=== PATIENT | male | born 1935 | race Caucasian/White ===

== ENCOUNTER 2017-08-03 08:53 | Outpatient (CLI) | payer MEDICARE ==
--- NOTE | 2017-08-03 09:17 | RAD ---
LEFT HAND THREE VIEWS: HISTORY: Hand pain. FINDINGS: There are moderate degenerative changes at the first carpometacarpal joint. Mild degenerative change s at the first and second MCP joints with minimal spurring and joint narrowing. Mild degenerative ch anges in the DIP joints, most prominent at the second and third DIP joints with hypertrophic spurring . No significant erosive change. There is a metallic soft tissue foreign body within the distal ventral soft tissues of the third fing er, at the level of the distal phalanx. This tiny metallic foreign body measures in the 2 mm range. No fracture or acute abnormality. IMPRESSION: 1. There are degenerative changes in the left hand, as described. 2. Tiny metallic foreign body in the ventral soft tissues of the distal middle finger. POS: [facility]
== END 2017-08-03 08:54 | disposition home or self-care (01) ==
LOC: RAD-FRANK 08:53
PROVIDERS: ATTEND Internal Medicine
DX: M79.5 Residual foreign body in soft tissue (principal); M79.645 Pain in left finger(s)

== ENCOUNTER 2017-12-17 17:40 | Observation (INO) | payer MEDICARE ==
[2017-12-17 18:43] LABS: #Eosinphils 0.5 thou/uL (0.0-0.7); #Lymphocytes 2.8 thou/uL (1.20-3.40); #Monocytes 0.9 thou/uL (0.11-0.59); #Neutrophils 3.8 thou/uL (1.40-6.50); %Basophils 0.4 % (0.0-1.0); %Eosinophils 6.4 % (0.0-10.0); %Lymphocytes 34.3 % (21.0-51.0); %Neutrophils 47.9 % (42.0-75.0); Mean Corpuscular HGB CONC 32.3 g/dL (32.0-36.0); Mean Corpuscular Hemoglobin 29.1 pg (27.0-31.0); Mean Platelet Volume 6.6 fL (7.4-10.4); Platelet Count 235 thou/uL (130-400); RBC Distribution Width 13.2 % (11.5-14.5)
[2017-12-17 19:01] LABS: CKMB 4.4 ng/mL (0-6.6); Troponin I Less than 0.010 ng/mL (< 0.028)
[2017-12-17 19:02] LABS: ALT (SGPT) 18 U/L (8-55); AST (SGOT) 34 U/L (5-34); Albumin 4.3 g/dL (3.4-4.8); Alkaline Phosphatase 73 U/L (40-150); Anion Gap 15 mmol/L (10-20); BUN (Urea Nitrogen) 13 mg/dL (8.4-25.7); Bilirubin, Total 0.6 mg/dL (0.2-1.2); CK (CPK) 100 U/L (30-200); Calc. Creatinine Clearance 0 mL/min (70-130); Calcium 9.8 mg/dL (7.8-10.44); Carbon Dioxide 23 mmol/L (23-31); Chloride 103 mmol/L (98-107); Estimated GFR-MDRD 73; Globulin 3.5 g/dL (2.4-3.5); Glucose 105 mg/dL (83-110); Potassium 4.6 mmol/L (3.5-5.1); Protein, Total 7.8 g/dL (5.8-8.1); Sodium 136 mmol/L (136-145)
--- NOTE | 2017-12-17 19:46 | RAD ---
CHEST ONE VIEW: 12/17/17 INDICATION: History of possible cardiac ischemia. Patient is concerned as the patient felt stiff which is similar to a prior cardiac event. COMPARISON: Prior two view chest radiograph dated 12/24/16. FINDINGS: There is stable elevation of the left hemidiaphragm. Mild cardiomegaly is stable. The lungs are other bertrand clear. Post CABG change is stable. No acute osseous abnormality is noted. IMPRESSION: No acute cardiopulmonary abnormality. POS: [facility]
--- NOTE | 2017-12-17 21:09 | CT ---
CT OF THE BRAIN WITHOUT CONTRAST: 12/17/17 INDICATION: Generalized weakness and difficulty saying words since 1300 hours today. COMPARISON: None. FINDINGS: There is mild generalized cerebral artery. There is mild chronic small vessel white matter ischemic c hange. No acute infarct, hemorrhage or hydrocephalus is present. The skull is intact. Mastoid air williams ls are clear. The visualized paranasal sinuses are clear. IMPRESSION: No acute intracranial abnormality demonstrated. POS: [facility]
[2017-12-17] MEDS ORDERED: Ondansetron ODT 4 MG TAB SL PRN (22:35)
[2017-12-17] MEDS ORDERED: Sodium Chloride 0.9% 1,000 ML IV SCH (22:35)
[2017-12-17] MEDS ORDERED: Acetaminophen 325 MG TAB PO PRN (22:35)
[2017-12-17] MEDS ORDERED: Ondansetron HCl/PF 4 MG/2 ML Vial IVP PRN (22:35)
[2017-12-17 22:49] VITALS: BMI 20.9
[2017-12-18] MEDS ORDERED: Aspirin 325 mg Enteric Coated Tablet PO SCH (08:00)
[2017-12-18] MEDS ORDERED: Prevnar 13-Val Conj/PF 0.5 ML SYRINGE IM ONE (09:00)
--- NOTE | 2017-12-18 12:04 | MRI ---
BRAIN MRI NONCONTRAST: INDICATION: TIA, stroke, generalized weakness. FINDINGS: There is no acute territory infarction, mass effect, or midline shift. Mild prominence of ventricula r system is present due to mild age-related parenchymal volume loss. There is no acute intracranial hemorrhage. Minimal chronic ischemic disease is seen within the cerebral white matter. IMPRESSION: No acute intracranial abnormality. POS: [facility]
--- NOTE | 2017-12-18 18:02 | ULT ---
CAROTID DUPLEX ULTRASOUND: 12/18/17 INDICATION: TIA versus CVA. FINDINGS: There is mild intimal thickening of the common carotid arteries as well as carotid bulbs. Peak systolic velocity in the right CCA was 79.4 cm/s and left CCA was 89.3 cm/s. Peak systolic velocity in the right ICA was 65.8 cm/s and left ICA was 47.9 cm/s. Right ICA to CCA ratio is 0.83 and left is 0.54. Antegrade flow is seen in both vertebral arteries. IMPRESSION: No hemodynamically significant stenosis demonstrated. POS: [facility]
[2017-12-18 20:19] VITALS: BP 149/70; TEMP 98.1
[2017-12-18] MEDS ORDERED: Cyclobenzaprine 10 MG TAB PO SCH (21:00)
--- NOTE | 2017-12-18 22:35 | HP ---
DATE OF ADMISSION: 12/17/2017 CHIEF COMPLAINT: Weakness and speech difficulty. HISTORY OF PRESENT ILLNESS: Mr. Antonio is an 82-year-old male with past medical history of hypertension, hypothyroidism, coronary artery disease, and rheumatoid arthritis came because of sudden onset of weakness in the legs. Basically, it is not exactly weakness. He is unable to ambulate well. He felt like falling down because of gait problem. He also had problem getting words out, so the speech was not clear. These symptoms started on Wednesday that was 2 days ago. Those symptoms lasted until Wednesday until he came to the hospital. Because the symptoms are not getting better, he came to the hospital. He did not have any focal weakness or any headache, dizziness, or vertigo. He did not have any chest pain or shortness of breath, nausea, vomiting. In the ER, the patient was evaluated and found to have any focal neurological deficit. Initial CAT scan of the brain was unremarkable. The patient received aspirin and was admitted for further evaluation to rule out CVA or TIA. The patient states his symptoms have completely resolved. He is able to speak normally and is able to ambulate normally without feeling unsteady. PAST MEDICAL HISTORY: 1. Coronary artery disease. 2. Rheumatoid arthritis. 3. Hypertension. 4. Hypothyroidism. 5. Chronic pain. 6. Hyperlipidemia. PAST SURGICAL HISTORY: Status post stent placement and status post CABG. CURRENT MEDICATIONS: Patient is on metoprolol succinate 50 mg daily, methotrexate once a week , levothyroxine 125 mcg daily, aspirin 325 mg daily. ALLERGIES: PENICILLIN. FAMILY HISTORY: Nothing of interest. SOCIAL HISTORY: He lives with family. No history of smoking or history of alcohol abuse. REVIEW OF SYSTEMS: Cardiovascular: No chest pain or shortness of breath. Constitutional: No fever or cough. Gastrointestinal: No nausea, vomiting, no abdominal pain. Central Nervous System: No headache. No dizziness. PHYSICAL EXAMINATION: GENERAL: The patient is alert, awake and oriented x3. VITAL SIGNS: Temperature 98, pulse 58, respirations 20, blood pressure 170/78. HEENT: Head is normocephalic and atraumatic. Pupils equal and reactive. Nasopharynx is pink and moist. NECK: Supple. No JVD. LUNGS: Bilateral air entry with no rales, no rhonchi. HEART: S1, S2 regular. ABDOMEN: Soft, no distention, no tenderness. Normal bowel sounds. RECTAL: Deferred. NEUROLOGIC: The patient is alert, awake, oriented x3. Motor system: Power 5/ 5 in all extremities. Deep tendon reflexes 2+ bilaterally. Plantars downgoing. Sensory intact. LABORATORY DATA AND IMAGING DATA: CBC shows hemoglobin 16, hematocrit 49, platelets 235. Metabolic panel: Sodium 136, potassium 4.6, chloride 102, CO2 of 23, urea nitrogen 13, creatinine 0.9, glucose 105, CK-MB 4.4, troponin I less than 0.010, BNP 84. CT scan of the brain, no acute intracranial abnormalities demonstrated. Chest x-ray, no acute cardiopulmonary abnormalities seen. EKG shows normal sinus rhythm, no acute ST-T wave changes seen. ASSESSMENT: 1. Unstable gait, balance problems and speech difficulties, rule out cerebrovascular accident, rule out transient ischemic attack. 2. Hypertension. 3. Coronary artery disease, status post stent, status post coronary artery bypass graft. 4. Hypothyroidism. 5. Rheumatoid arthritis. PLAN: 1. Vital signs q.4 hours. 2. Activity as tolerated. 3. Allergies: PENICILLIN. 4. Hep-Lock. 5. Continue home medication. 6. CK-MB and troponin q.8 hours x2. 7. We will obtain MRI of the brain. 8. Carotid Doppler study. 9. Neurology consult, but there is no neurologist available for this weekend. GRAEME
[2017-12-19] MEDS ORDERED: Levothyroxine Sodium 125 MCG TAB PO SCH (06:00)
--- NOTE | 2017-12-19 08:38 | EKG ---
Test Reason : Blood Pressure : / mmHG Vent. Rate : 065 BPM Atrial Rate : 065 BPM P-R Int : 190 ms QRS Dur : 098 ms QT Int : 400 ms P-R-T Axes : 027 -36 052 degrees QTc Int : 416 ms Normal sinus rhythm Possible Left atrial enlargement Left axis deviation RSR' or QR pattern in V1 suggests right ventricular conduction delay Left ventricular hypertrophy Abnormal ECG Confirmed by ROSSY JUAN ([id number]) on 12/19/2017 8:37:52 AM Referred By: Confirmed By:ROSSY JUAN
[2017-12-19] MEDS ORDERED: Aspirin 325 MG TAB PO SCH (09:00)
--- NOTE | 2017-12-20 12:48 | DIS ---
DATE OF ADMISSION: 12/17/2017 DATE OF DISCHARGE: 12/18/2017 ADMITTING DIAGNOSES: 1. Unstable gait balance problems and speech difficulties, rule out cerebrovascular accident, rule o ut transient ischemic attack. 2. Hypertension. 3. Coronary artery disease, status post coronary artery bypass graft. 4. Hypothyroidism. 5. Rheumatoid arthritis. FINAL DIAGNOSES: 1. Unstable gait, balance problems, speech difficulties with possible transient ischemic attack. 2. Hypertension. 3. Coronary artery disease, status post coronary artery bypass graft. 4. Hypothyroidism. 5. Rheumatoid arthritis. BRIEF SUMMARY OF HOSPITAL COURSE: Mr. Antonio is an 82-year-old male admitted because of spe ech difficulties lasted almost for a day as well as the balance problem. The patient was unable to a mbulate, felt like falling down due to balance problems. He did not have any dizziness or vertigo. He denied chest pain, shortness of breath. He did have a definite weakness. The patient was admitte d to rule out CVA or TIA. Initial CAT scan was negative. MRI of the brain was done, which was unrem arkable. The patient's symptoms completely resolved within 24 hours. He was able to ambulate withou t any difficulty. Speech is clear. Neurology consult was requested, but there was no neurologist av ailable for this weekend. The patient is being discharged home. At the time of discharge, he was st able. His vital signs were stable. Lungs clear. Heart sounds regular. Abdomen is soft, nontender. Bowel sounds present. DISCHARGE MEDICATIONS: Aspirin 325 mg daily, methotrexate 12 mg every week, metoprolol 50 daily, lev othyroxine 125 mcg daily. DISCHARGE INSTRUCTIONS: The patient will come for followup next week and he will be referred to a ne urologist for opinion.
[2017-12-25] MEDS ORDERED: Methotrexate Sodium 2.5 MG TAB PO SCH (09:00)
== END 2017-12-18 20:13 | disposition home or self-care (01) ==
LOC: ERS 17:40 → CCU 22:24
PROVIDERS: ADMIT Internal Medicine; ATTEND Internal Medicine
DX: R26.89 Other abnormalities of gait and mobility (principal); R29.91 Unspecified symptoms and signs involving the musculoskeletal system; R47.9 Unspecified speech disturbances; I10 Essential (primary) hypertension; E03.9 Hypothyroidism, unspecified; I25.10 Atherosclerotic heart disease of native coronary artery without angina pectoris; M06.9 Rheumatoid arthritis, unspecified; E78.5 Hyperlipidemia, unspecified; Z79.82 Long term (current) use of aspirin; Z79.899 Other long term (current) drug therapy; Z88.0 Allergy status to penicillin; Z95.1 Presence of aortocoronary bypass graft; Z95.5 Presence of coronary angioplasty implant and graft
CPT/HCPCS: 70450; 70551; 71045; 80053; 82550; 82553; 83880; 84484; 85025; 90662; 90670; 93005; 93880; 96360; 96361; 99285; G0008; G0009; G0378 ×2; 36415; 90471

== ENCOUNTER 2018-11-30 09:24 | Emergency (ER) | payer MEDICARE ==
--- NOTE | 2018-11-30 10:18 | RAD ---
LEFT HIP TWO VIEWS: HISTORY: Fall. COMPARISON: None. FINDINGS: There is a fracture of the greater trochanter, which is displaced anterolaterally. Extensive heterot opic ossification on the lateral thigh. Left lateral thigh soft tissue contusion. Obturator ring is intact. Left hip arthroplasty is in place. IMPRESSION: 1. Anteriorly and laterally displaced left greater trochanteric fracture adjacent to the lateral femo ral proximal stem. 2. Left lateral thigh soft tissue contusion as well as heterotopic ossification. POS: [facility]
[2018-11-30 11:29] LABS: #Basophils 0.1 thou/uL (0.0-0.2); #Eosinphils 0.1 thou/uL (0.0-0.7); #Lymphocytes 1.9 thou/uL (1.20-3.40); #Monocytes 1.8 thou/uL (0.11-0.59); #Neutrophils 12.9 thou/uL (1.40-6.50); %Basophils 0.6 % (0.0-1.0); %Eosinophils 0.5 % (0.0-10.0); %Lymphocytes 11.5 % (21.0-51.0); %Monocytes 10.5 % (0.0-10.0); Hemoglobin 15.5 g/dL (14.0-18.0); Mean Corpuscular HGB CONC 32.4 g/dL (32.0-36.0); Mean Corpuscular Hemoglobin 28.8 pg (27.0-31.0); Mean Corpuscular Volume 88.9 fL (78.0-98.0); Platelet Count 223 thou/uL (130-400); RBC Distribution Width 15.4 % (11.5-14.5); Red Blood Cell (RBC) Count 5.39 mill/uL (4.70-6.10); White Blood Cell (WBC) Count 16.8 thou/uL (4.8-10.8)
[2018-11-30 11:43] LABS: ALT (SGPT) 20 U/L (8-55); AST (SGOT) 26 U/L (5-34); Albumin 4.2 g/dL (3.4-4.8); Alkaline Phosphatase 55 U/L (40-110); Anion Gap 13 mmol/L (10-20); BUN (Urea Nitrogen) 19 mg/dL (8.4-25.7); Bilirubin, Total 0.7 mg/dL (0.2-1.2); Calc. Creatinine Clearance 0 mL/min (70-130); Calcium 9.2 mg/dL (7.8-10.44); Carbon Dioxide 29 mmol/L (23-31); Chloride 102 mmol/L (98-107); Estimated GFR-MDRD 54; Globulin 2.6 g/dL (2.4-3.5); Glucose 142 mg/dL (83-110); Protein, Total 6.8 g/dL (5.8-8.1); Sodium 140 mmol/L (136-145)
[2018-11-30] MEDS ORDERED: HYDROcodone/Acetaminophen 10/325 mg Tablet ONE (12:17)
--- NOTE | 2018-12-03 14:43 | EKG ---
Test Reason : Blood Pressure : / mmHG Vent. Rate : 073 BPM Atrial Rate : 073 BPM P-R Int : 154 ms QRS Dur : 094 ms QT Int : 374 ms P-R-T Axes : 022 -40 132 degrees QTc Int : 412 ms Poor data quality, interpretation may be adversely affected Normal sinus rhythm Left axis deviation Incomplete right bundle branch block Minimal voltage criteria for LVH, may be normal variant Abnormal ECG Confirmed by JOSEPHINE TALLEY DO ([id number]), subeditor NAHID JOHNSON ([id number]) on 12/03/2018 2:42:13 PM Referred By: Confirmed By:JOSEPHINE TALLEY DO
== END 2018-11-30 12:29 | disposition home or self-care (01) ==
LOC: ERS 09:24
DX: S72.112A Displaced fracture of greater trochanter of left femur, initial encounter for closed fracture (principal); M06.9 Rheumatoid arthritis, unspecified; I25.10 Atherosclerotic heart disease of native coronary artery without angina pectoris; E03.9 Hypothyroidism, unspecified; E78.5 Hyperlipidemia, unspecified; I10 Essential (primary) hypertension; Z79.899 Other long term (current) drug therapy; W19.XXXA Unspecified fall, initial encounter
CPT/HCPCS: 36415; 80053; 85025; 93005

== ENCOUNTER 2019-01-17 09:16 | Outpatient (CLI) | payer MEDICARE ==
--- NOTE | 2019-01-17 13:46 | MRI ---
MRI LEFT HIP WITHOUT IV CONTRAST: INDICATIONS: History of left total hip replacement with left hip pain and concern for adverse reaction to cobalt a nd chromium metal on metal hip. COMPARISON: Left hip radiographs dated 11/30/2018 and 11/09/2012. TECHNIQUE: Metal reduction sequences were obtained of the pelvis and left hip without IV contrast. An assortment of T2 weighted, T1 weighted and STIR images were obtained of the left hip. FINDINGS: There is some residual metallic susceptibility artifact from the patient's left acetabular and femora l prosthesis. There is a nondisplaced fracture involving the anterior cortex of the anterior left proximal femoral metaphyseal region, extending down to the anterior femoral shaft, just distal to the end of the femor al stem. This is best seen on images 40 through 13 of series 9. An additional nondisplaced fracture i s seen along the posterior cortex of the proximal left femoral metaphysis, extending into the proxima l femoral shaft, best seen on image 19 of series 6. There is extensive synovitis involving the left hip, distending the joint space and decompressing int o the periarticular soft tissues of the left trochanteric bursa, with a distended pseudocapsule exten ding down the anterolateral aspect of the left thigh. The large periarticular pseudocapsule surroundi ng the left hip measures approximately 25.4 x 8.4 cm in its greatest craniocaudad and AP dimensions r espectively. The collection does extend down to the level of the distal left thigh, subjacent to the iliotibial band and along the vastus lateralis musculature. There is a fluid-fluid layer seen within the large pseudo capsule of the posterolateral left hip and lateral left thigh, possibly related to a small amount of hemorrhage from the patient's periprosthetic fracture. There is extensive synovitis lining the pseudocapsule with low signal intensity signal lining the synovial capsule, likely relate d to metallic debris. There is some synovitis and synovial hypertrophy distending the left iliopsoas bursa, extending along the left iliopsoas tendon and to the level of the left iliacus muscle. The ten don appears intact. The left gluteus minimus is intact. The left gluteus medius tendon is disrupted from this large peria rticular pseudocapsule. There is marked atrophy of the left gluteus minimus and medius musculature. T he pseudocapsule does contact the sciatic nerve, at the level of the proximal left femur without defi nite evidence of impingement. There is scattered diverticula involving the colon. No definite enlarged lymph nodes are evident. IMPRESSION: 1. Findings of a nondisplaced obliquely oriented proximal femoral periprosthetic fracture. 2. 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 There is prominent pseudocapsule distention involving the po sterolateral soft tissues of the left hip that decompresses into the left trochanteric bursa with the fluid distended trochanteric bursa extending inferiorly down the lateral aspect of the left thigh, s ubjacent to the iliotibial band. There is also decompression of the joint effuison into the left ilio psoas bursa with extension of synovial proliferation and bursal fluid along the tendon, up to the lev el of the left iliacus muscle. 3. Findings were called to Dr. Godoy's answering service at 1:10 p.m. on 01/17/2019. CODE CR POS: [facility]
== END 2019-01-17 09:17 | disposition home or self-care (01) ==
LOC: MRI 09:16
PROVIDERS: ATTEND Orthopaedic Surgery
DX: Z47.1 Aftercare following joint replacement surgery (principal); Z96.642 Presence of left artificial hip joint

== ENCOUNTER 2019-02-15 13:30 | Inpatient (IN) | payer MEDICARE ==
[2019-02-15 13:30] VITALS: BMI 27.2
[2019-02-28] MEDS ORDERED: Midazolam HCl 2 mg/2 ml Vial ONE (07:28)
[2019-02-28] MEDS ORDERED: Fentanyl 100 MCG/2 ML VIAL ONE ×2 (07:28→09:09)
[2019-02-28] MEDS ORDERED: Tranexamic Acid 1,000 MG/10 ML VIAL ONE (08:30)
[2019-02-28] MEDS ORDERED: Levofloxacin 500 mg/D5W 100 ml Premix Bag ONE (08:30)
[2019-02-28] MEDS ORDERED: Sodium Chloride 0.9% 0 ML ONE (08:31)
[2019-02-28] MEDS ORDERED: Vancomycin 1.5 GRAM/300 ML BAG 1.5 GM/300 ML BAG ONE (08:34)
[2019-02-28] MEDS ORDERED: Sodium Chloride 0.9% 100 ML ONE (08:34)
[2019-02-28] MEDS ORDERED: Promethazine HCl 25 MG SUPP PR PRN (09:00)
[2019-02-28] MEDS ORDERED: diphenhydrAMINE 25 MG CAP PO PRN ×2 (09:00→12:16)
[2019-02-28] MEDS ORDERED: Bupivacaine 0.25% 10 ML VIAL EPIDURAL PRN (09:00)
[2019-02-28] MEDS ORDERED: Naloxone HCl 0.4 mg/ml Vial IV PRN (09:00)
[2019-02-28] MEDS ORDERED: diphenhydrAMINE 50 MG/ML VIAL IM PRN (09:00)
[2019-02-28] MEDS ORDERED: Hydrocerin (Eucerin) Cream 120 gm Jar TOP PRN (09:00)
[2019-02-28] MEDS ORDERED: Zolpidem Tartrate 5 MG TAB PO PRN ×2 (09:00→12:16)
[2019-02-28] MEDS ORDERED: diphenhydrAMINE 50 MG/ML VIAL IVP PRN (09:00)
[2019-02-28] MEDS ORDERED: Naloxone HCl 0.4 mg/ml Vial IVP PRN (09:00)
[2019-02-28] MEDS ORDERED: Promethazine HCl 25 MG/ML VIAL IM PRN ×3 (09:00→12:16)
[2019-02-28] MEDS ORDERED: Ropivacaine 0.2% HCl/PF 20 ML ONE (09:13)
[2019-02-28] MEDS ORDERED: Gentamicin Sulfate 120 MG in Premix Bag 1 BAG IVPB SCH (09:30)
[2019-02-28] MEDS ORDERED: PROPOFOL 200 MG/20 ML VIAL ONE (10:51)
[2019-02-28] MEDS ORDERED: ePHEDrine/0.9% NaCl/PF SYRINGE 50 mg/10 ml ONE (10:51)
[2019-02-28] MEDS ORDERED: Lidocaine 1.5% w/Epi 1:200K 30 ML VIAL (Epid Use) ONE (10:51)
[2019-02-28] MEDS ORDERED: Rocuronium Bromide 10 MG/ML (10ML VIAL) ONE (10:51)
[2019-02-28] MEDS ORDERED: Lidocaine 1% PF 5 ML VIAL ONE (10:51)
[2019-02-28] MEDS ORDERED: Glycopyrrolate 0.2 MG/ML 5 ML SYRINGE ONE (10:51)
[2019-02-28] MEDS ORDERED: PHENYLEPHRINE-NS 100 MCG/ML 10 ML SYRINGE ONE (10:51)
[2019-02-28] MEDS ORDERED: Ondansetron HCl/PF 4 MG/2 ML Vial IVP PRN (12:14)
[2019-02-28] MEDS ORDERED: Promethazine HCl 25 MG/ML VIAL SLOW IVP PRN (12:14)
[2019-02-28] MEDS ORDERED: Morphine 4 MG/ML VIAL SLOW IVP PRN (12:16)
[2019-02-28] MEDS ORDERED: Ondansetron PF 4 MG/2 ML Vial IVP PRN (12:16)
[2019-02-28] MEDS ORDERED: Ketorolac Tromethamine 30 MG/ML VIAL IVP PRN (12:16)
[2019-02-28] MEDS ORDERED: HYDROcodone/Acetaminophen 10/325 mg Tablet PO PRN ×2 (12:16)
[2019-02-28] MEDS ORDERED: Acetaminophen 325 MG TAB PO PRN (12:16)
[2019-02-28] MEDS ORDERED: Fentanyl 100 MCG/2 ML VIAL SLOW IVP PRN (12:16)
[2019-02-28] MEDS ORDERED: traMADol HCl 50 MG TAB PO PRN (12:16)
[2019-02-28] MEDS ORDERED: RISEDRONATE SODIUM 150 MG PO SCH (12:30)
--- NOTE | 2019-02-28 12:37 | RAD ---
EXAM: 2 views of the left hip HISTORY: Left hip revision arthroplasty COMPARISON: 11/30/2018 FINDINGS: 2 views of the left hip shows the patient is status post revision of the left hip prosthesi s. Cerclage wires surround the proximal femur where a fracture is seen. Air in the soft tissues is from recent surgery. IMPRESSION: Status post left hip arthroplasty revision.
[2019-02-28] MEDS ORDERED: Gentamicin 80 MG/2 ML VIAL IM SCH (14:00)
--- NOTE | 2019-02-28 15:26 | OP ---
DATE OF PROCEDURE: 02/28/2019 TITLE OF PROCEDURE: Revision total hip arthroplasty. IN [employer] SERVICE TECHNICIAN: Ryan Armendariz MD ESTIMATED BLOOD LOSS: 400. SPECIMEN: Very large amount of adverse tissue reaction was sent for culture and for microscopic specimen. IMPLANTS USED: [employer]eger [employer] Modular 18 mm stem with a 19-mm body, a +4 ceramic head, and a 46 mm head, used an MDM cup size 60 outside diameter. DESCRIPTION OF PROCEDURE: The patient was taken to the operating room, where general anesthesia was induced. He received vancomycin and gentamicin preoperatively. He was placed on right lateral decubitus position. I opened up part of his old incision laterally, extended this extensively proximally and distally. Dissection carried down the IT band. I exposed the IT band then opened it with a knife and there was just a rupture and a fluid and foreign body material from the wound itself. I then extended the IT band proximally and distally and extirpated a large amount of adverse tissue reaction, metallosis, and scar. There was essentially no abductors connected anymore to the greater trochanter. The hip was dislocated. The head was removed. I used the appropriate implants to remove the trunnion. I then tried to remove the stem without making an osteotomy; however, osteotomy was required. Osteotomy was performed to the hip. Stem was removed without difficulty. Then, we repaired the osteotomy with cables. The acetabulum was exposed circumferentially and the socket was removed using Innomed cup extractor device. I was able to preserve a great deal of bone on the pelvis. The pelvis was reamed to 58 mm. I impacted a 60 mm multi-hole revision cup with excellent press fit. No screws were required. I placed the MDM liner. The femur was then reamed to 18 mm distally. I impacted 18 mm stem, reamed laterally up to a tight 19 mm using 19 mm body, performed trials. Appropriate implants were selected. I assembled the implant correctly, used a torque wrench to reduce the tight in the bolt. The hip was reduced. There was no abductors close. I did repair the vastus lateralis with #1 Vicryl, IT band was repaired with #2 Vicryl and #2 Quill, subcu closed with 0 Quill. Skin was closed with Prolene. Sterile dressing applied. Job ID: [id number]
[2019-02-28] MEDS: Sodium Chloride 0.9% 1,000 ML IV SCH (18:22)
[2019-02-28] MEDS: Gentamicin Sulfate 80 MG in Premix Bag 1 BAG IVPB SCH (18:24)
[2019-02-28] MEDS: Senokot S 8.6-50 MG TAB PO SCH (20:19)
[2019-02-28] MEDS: Aspirin 81 mg Enteric Coated Tablet PO SCH (20:20)
[2019-02-28] MEDS: Cepastat Lozenges 1 LOZ PO PRN ×2 (20:20→22:29)
[2019-02-28] MEDS: Ferrous Gluconate 324 MG TAB PO SCH (20:20)
[2019-02-28] MEDS ORDERED: Vancomycin HCl 1 GM in Premix Bag 1 BAG IVPB SCH (20:30)
[2019-02-28] MEDS ORDERED: Metoprolol Tartrate 50 MG TAB PO SCH (21:00)
[2019-03-01] MEDS: Cepastat Lozenges 1 LOZ PO PRN (00:39)
--- NOTE | 2019-03-01 00:47 | CON ---
DATE OF CONSULTATION: 02/28/2019 REASON FOR CONSULT: To manage medical problems. REQUESTING PHYSICIAN: Artem Godoy MD HISTORY OF PRESENT ILLNESS: Mr. Antonio is an 83-year-old male, with past medical history of hypertension, rheumatoid arthritis, hypothyroidism, chronic left hip pain, was admitted for revision left hip total arthroplasty. The patient underwent surgery today and we have been consulted to manage medical problems. The patient does have history of hypertension, rheumatoid arthritis, on medications and currently does not have any shortness of breath or chest pain. No fever. No nausea, vomiting, was able to ambulate with a walker today. The patient is on pain medication. He does not have any headache or dizziness. PAST MEDICAL HISTORY: 1. Coronary artery disease. 2. Rheumatoid arthritis. 3. Hypertension. 4. Hypothyroidism. 5. Chronic pain. 6. Hyperlipidemia. PAST SURGICAL HISTORY: 1. Status post stent placements. 2. Status post CABG. 3. Status post hip replacement. CURRENT MEDICATIONS: The patient is on 1. Tylenol p.r.n. at home. 2. Aspirin 81 mg daily. 3. Multivitamin daily. 4. Vitamin D3 2000 units daily. 5. Folic acid 1 mg daily. 6. Prednisone 5 mg daily. 7. Metoprolol 50 mg daily.. 8. Levothyroxine 100 mcg daily. 9. Orencia q.30 days. ALLERGIES: INCLUDE MUCINEX, LEVAQUIN, METHOTREXATE, PENICILLINS, SIMVASTATIN. REVIEW OF SYSTEMS: CARDIOVASCULAR: No chest pain. No shortness of breath. RESPIRATORY: No fever or cough. GASTROINTESTINAL: No nausea, vomiting. No abdominal pain. CENTRAL NERVOUS SYSTEM: No headache. No dizziness. PHYSICAL EXAMINATION: GENERAL: The patient is alert, awake, oriented x3. VITAL SIGNS: Temperature 98, pulse 90, respiratory rate 20, blood pressure 120/ 70. HEENT: Head is normocephalic, atraumatic. Pupils are equal and reactive. Nasopharynx is pink and moist. NECK: Supple. No JVD. LUNGS: Bilateral air entry present. No rales, no rhonchi. HEART: S1 and S2, regular. ABDOMEN: Soft. No distention. No tenderness. Normal bowel sounds. RECTAL: Deferred. CENTRAL NERVOUS SYSTEM: No focal deficits. LABORATORY DATA: CBC, basic metabolic panel pending. ASSESSMENT: 1. Left hip pain status post revision total hip arthroplasty. 2. Hypertension. 3. Coronary artery disease. 4. Rheumatoid arthritis. 5. Hyperlipidemia. 6. Hypothyroidism. PLAN: 1. Hold metoprolol if the systolic blood pressure less than 110. 2. We will hold other home medications as well for the time being until he is off pain pump. Thank you very much for the consult, I will follow. Job ID: [id number] MTDD
[2019-03-01] MEDS: Gentamicin Sulfate 80 MG in Premix Bag 1 BAG IVPB SCH (01:16)
[2019-03-01] MEDS: Fentanyl 5 mcg/Bup 0.075% Cadd 100 ML EPIDURAL SCH ×2 (04:27→20:30)
[2019-03-01 05:49] LABS: Hemoglobin 12.7 g/dL (14.0-18.0); Mean Corpuscular HGB CONC 32.4 g/dL (32.0-36.0); Mean Corpuscular Hemoglobin 30.4 pg (27.0-31.0); Mean Corpuscular Volume 93.8 fL (78.0-98.0); Platelet Count 203 thou/uL (130-400); RBC Distribution Width 13.2 % (11.5-14.5); Red Blood Cell (RBC) Count 4.17 mill/uL (4.70-6.10); White Blood Cell (WBC) Count 9.8 thou/uL (4.8-10.8)
[2019-03-01] MEDS: Levothyroxine Sodium 100 MCG TAB PO SCH (06:40)
[2019-03-01] MEDS: Sodium Chloride 0.9% 1,000 ML IV SCH ×3 (07:23→12:49)
[2019-03-01] MEDS ORDERED: MILK THISTLE 1000 MG PO SCH (09:00)
[2019-03-01] MEDS ORDERED: Multivit, Therapeutic 1 TAB PO SCH (09:00)
[2019-03-01] MEDS: Vit A,C & E/Lutein/Minerals Tablet PO SCH (09:04)
[2019-03-01] MEDS: Aspirin 81 mg Enteric Coated Tablet PO SCH ×2 (09:04→20:32)
[2019-03-01] MEDS: Multivitamin W/ Minerals 1 TAB PO SCH (09:04)
[2019-03-01] MEDS: Ferrous Gluconate 324 MG TAB PO SCH ×2 (09:04→20:31)
[2019-03-01] MEDS: predniSONE 5 MG TAB PO SCH (09:04)
[2019-03-01] MEDS: Senokot S 8.6-50 MG TAB PO SCH ×2 (09:04→20:32)
[2019-03-01] MEDS: Fish Oil 1,000 MG CAP PO SCH (09:08)
[2019-03-01] MEDS: Stress 600 With Zinc 1 TAB PO SCH (09:09)
[2019-03-01] MEDS: Ondansetron PF 4 MG/2 ML Vial IVP PRN (09:20)
[2019-03-01] MEDS ORDERED: Metoprolol Tartrate 25 MG TAB PO SCH (16:45)
[2019-03-01] MEDS ORDERED: Metoprolol Tartrate 50 MG TAB PO SCH (17:15)
[2019-03-01] MEDS ORDERED: Enoxaparin Sodium 40 MG/0.4 ML SYRINGE SC SCH (21:00)
[2019-03-02] MEDS: Levothyroxine Sodium 100 MCG TAB PO SCH (06:01)
[2019-03-02] MEDS: Sodium Chloride 0.9% 1,000 ML IV SCH ×2 (06:04→17:05)
[2019-03-02 06:15] LABS: Hemoglobin 10.6 g/dL (14.0-18.0); Mean Corpuscular HGB CONC 31.6 g/dL (32.0-36.0); Mean Corpuscular Hemoglobin 29.1 pg (27.0-31.0); Mean Corpuscular Volume 92.2 fL (78.0-98.0); Mean Platelet Volume 7.1 fL (7.4-10.4); Platelet Count 178 thou/uL (130-400); RBC Distribution Width 13.1 % (11.5-14.5); Red Blood Cell (RBC) Count 3.64 mill/uL (4.70-6.10)
[2019-03-02] MEDS: Ferrous Gluconate 324 MG TAB PO SCH ×2 (08:03→20:32)
[2019-03-02] MEDS: Multivitamin W/ Minerals 1 TAB PO SCH (08:03)
[2019-03-02] MEDS: Fish Oil 1,000 MG CAP PO SCH (08:03)
[2019-03-02] MEDS: Senokot S 8.6-50 MG TAB PO SCH ×2 (08:03→20:32)
[2019-03-02] MEDS: Aspirin 81 mg Enteric Coated Tablet PO SCH ×2 (08:03→20:33)
[2019-03-02] MEDS: Vit A,C & E/Lutein/Minerals Tablet PO SCH (08:03)
[2019-03-02] MEDS: predniSONE 5 MG TAB PO SCH (08:03)
[2019-03-02] MEDS: Stress 600 With Zinc 1 TAB PO SCH (08:04)
--- NOTE | 2019-03-02 08:48 | PRG ---
DATE OF SERVICE: 03/02/2019 SUBJECTIVE: Mehul is an 83-year-old male, postop day 2 from revision left total hip arthroplasty secondary to aseptic failure. Tissue cultures, no growth at 24 hours and no organisms seen. The patient ambulated 200 feet yesterday. He is quite happy with his postoperative results and his pain is significantly better. OBJECTIVE: VITAL SIGNS: Temperature 98.6, pulse 100, respiratory rate 16, O2 saturation is 93% on room air, blood pressure is 123/70. GENERAL: He is alert and oriented to person, place, time, situation, responsive and appropriate with examiner, in good spirits. EXTREMITIES: Incision is clean. No strike through. No malrotation or shortening. LABORATORY DATA: His hemoglobin and hematocrit 10.6 and 33.6. 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 PLAN: Continue current care. We will discontinue epidural and Tellez today and probable discharge home tomorrow. Job ID: [id number]
[2019-03-02] MEDS ORDERED: Morphine 4 MG/ML VIAL SLOW IVP PRN (09:49)
[2019-03-02] MEDS ORDERED: HYDROcodone/Acetaminophen 10/325 mg Tablet PO PRN ×2 (09:49)
[2019-03-02] MEDS ORDERED: Zolpidem Tartrate 5 MG TAB PO PRN (09:50)
[2019-03-02] MEDS ORDERED: Iopamidol-370 76% 500 ML 1 ML ONE (10:40)
[2019-03-02 10:53] LABS: ALT (SGPT) 14 U/L (8-55); AST (SGOT) 34 U/L (5-34); Albumin 3.1 g/dL (3.4-4.8); Alkaline Phosphatase 41 U/L (40-110); Anion Gap 12 mmol/L (10-20); BUN (Urea Nitrogen) 14 mg/dL (8.4-25.7); Calc. Creatinine Clearance 72 mL/min (70-130); Calcium 8.1 mg/dL (7.8-10.44); Carbon Dioxide 22 mmol/L (23-31); Chloride 103 mmol/L (98-107); Estimated GFR-MDRD 74; Globulin 2.3 g/dL (2.4-3.5); Glucose 135 mg/dL (83-110); Potassium 4.2 mmol/L (3.5-5.1); Protein, Total 5.4 g/dL (5.8-8.1); Sodium 133 mmol/L (136-145)
--- NOTE | 2019-03-02 11:46 | CT ---
CT PULMONARY ANGIOGRAM WITH IV CONTRAST AND 3D POST PROCESSING: HISTORY: Recent hip replacement. Tachycardia. Erratic biophysical profile. FINDINGS: There is good contrast opacification of the pulmonary arterial vasculature without filling defects to suggest pulmonary embolism. The thoracic aorta is well opacified without aneurysm or dissection. No pleural or pericardial effusions are seen. There is elevation of the left hemidiaphragm. There are at electatic changes in the lung bases. There are degenerative changes in the spine. There are old compr ession fractures of the mid thoracic vertebral bodies. IMPRESSION: No CT evidence of pulmonary embolism. POS: [facility]
[2019-03-02] MEDS: Ondansetron PF 4 MG/2 ML Vial IVP PRN (12:54)
--- NOTE | 2019-03-02 16:53 | EKG ---
Test Reason : Blood Pressure : / mmHG Vent. Rate : 104 BPM Atrial Rate : 104 BPM P-R Int : 192 ms QRS Dur : 102 ms QT Int : 332 ms P-R-T Axes : 058 -49 059 degrees QTc Int : 436 ms Sinus tachycardia Left anterior fascicular block Nonspecific ST abnormality Abnormal ECG When compared with ECG of 15-FEB-2019 14:16, (Unconfirmed) Borderline criteria for Lateral infarct are no longer Present ST now depressed in Anterior leads Confirmed by DR. Luis KEENAN ([id number]) on 03/02/2019 4:53:06 PM Referred By: BLAS Confirmed By:DR. Luis KEENAN
[2019-03-02] MEDS: traMADol HCl 50 MG TAB PO PRN ×2 (16:54→23:13)
[2019-03-02] MEDS: Metoprolol Tartrate 50 MG TAB PO SCH (20:32)
[2019-03-02] MEDS ORDERED: Metoprolol Tartrate 25 MG TAB PO SCH (21:00)
[2019-03-03] MEDS: Sodium Chloride 0.9% 1,000 ML IV SCH ×4 (01:07→20:43)
[2019-03-03 05:23] LABS: Hemoglobin 10.2 g/dL (14.0-18.0); Mean Corpuscular Hemoglobin 30.1 pg (27.0-31.0); Mean Corpuscular Volume 91.1 fL (78.0-98.0); Mean Platelet Volume 7.2 fL (7.4-10.4); Platelet Count 188 thou/uL (130-400); RBC Distribution Width 12.8 % (11.5-14.5); Red Blood Cell (RBC) Count 3.39 mill/uL (4.70-6.10); White Blood Cell (WBC) Count 12.8 thou/uL (4.8-10.8)
[2019-03-03] MEDS: Levothyroxine Sodium 100 MCG TAB PO SCH (05:31)
[2019-03-03] MEDS: traMADol HCl 50 MG TAB PO PRN ×3 (05:31→18:19)
--- NOTE | 2019-03-03 08:14 | PRG ---
DATE OF SERVICE: 03/03/2019 SUBJECTIVE: Mehul is an 83-year-old male, who is now postoperative day #3 from a revision bicompartmental left hip arthroplasty. He is doing relatively well in terms of getting in and out of bed, but he is not quite independent with going back and forth to the toilet on his own, but he is able to ambulate 200 feet with standby assist. He has not had a bowel movement yet. He is concerned over this and he only urinated once yesterday. His output has been scant. He otherwise feels relatively well. OBJECTIVE: VITAL SIGNS: Temperature 98.2, pulse 88, respiratory rate 20 and unlabored, O2 saturation is 93% on room air, and blood pressure 142/72. GENERAL: He is alert and oriented to person, place, time, and situation. Responsive and appropriate with examiner. His incision is clean. There is no significant strike through. There is no malrotation or shortening of the left lower extremity. LABORATORY DATA: Hemoglobin and hematocrit 10.2 and 30.9. His white count is 12.8, which is slightly up from yesterday of 12. Cultures at 48 hours still demonstrated no growth. No tissues or organisms seen. IMPRESSION: An 83-year-old male, postop day #3 from a bicompartmental left hip revision arthroplasty. PLAN: Continue current care. I will encourage oral intake, also give supplement for some MiraLAX for his bowels, but I think the patient should convalesce over the weekend since he is a little slow reaching milestones of independence. Also may introduce concept of a short rehab stay, but I will leave that up to him. Follow up tomorrow. Job ID: [id number]
[2019-03-03] MEDS: Multivitamin W/ Minerals 1 TAB PO SCH (08:16)
[2019-03-03] MEDS: Senokot S 8.6-50 MG TAB PO SCH ×2 (08:16→20:43)
[2019-03-03] MEDS: Ferrous Gluconate 324 MG TAB PO SCH ×2 (08:16→20:43)
[2019-03-03] MEDS: Fish Oil 1,000 MG CAP PO SCH (08:16)
[2019-03-03] MEDS: predniSONE 5 MG TAB PO SCH (08:16)
[2019-03-03] MEDS: Polyethylene Glycol 3350 17 GM Packet PO PRN (08:16)
[2019-03-03] MEDS: Aspirin 81 mg Enteric Coated Tablet PO SCH ×2 (08:16→20:43)
[2019-03-03] MEDS: Stress 600 With Zinc 1 TAB PO SCH (08:17)
[2019-03-03] MEDS: Vit A,C & E/Lutein/Minerals Tablet PO SCH (08:17)
[2019-03-03] MEDS: Metoprolol Tartrate 50 MG TAB PO SCH (20:43)
[2019-03-04] MEDS: Levothyroxine Sodium 100 MCG TAB PO SCH (05:36)
[2019-03-04] MEDS: Sodium Chloride 0.9% 1,000 ML IV SCH ×2 (05:36→15:43)
[2019-03-04 06:40] LABS: Hemoglobin 9.6 g/dL (14.0-18.0); Mean Corpuscular HGB CONC 33.1 g/dL (32.0-36.0); Mean Corpuscular Hemoglobin 30.3 pg (27.0-31.0); Mean Corpuscular Volume 91.4 fL (78.0-98.0); Mean Platelet Volume 7.6 fL (7.4-10.4); Platelet Count 202 thou/uL (130-400); RBC Distribution Width 12.7 % (11.5-14.5); Red Blood Cell (RBC) Count 3.17 mill/uL (4.70-6.10); White Blood Cell (WBC) Count 10.3 thou/uL (4.8-10.8)
[2019-03-04] MEDS: Vit A,C & E/Lutein/Minerals Tablet PO SCH (09:42)
[2019-03-04] MEDS: Stress 600 With Zinc 1 TAB PO SCH (09:42)
[2019-03-04] MEDS: Senokot S 8.6-50 MG TAB PO SCH ×2 (09:42→20:52)
[2019-03-04] MEDS: Aspirin 81 mg Enteric Coated Tablet PO SCH ×2 (09:43→20:52)
[2019-03-04] MEDS: Multivitamin W/ Minerals 1 TAB PO SCH (09:43)
[2019-03-04] MEDS: Ferrous Gluconate 324 MG TAB PO SCH ×2 (09:43→20:52)
[2019-03-04] MEDS: predniSONE 5 MG TAB PO SCH (09:43)
[2019-03-04] MEDS: traMADol HCl 50 MG TAB PO PRN ×2 (09:43→19:09)
[2019-03-04] MEDS: Fish Oil 1,000 MG CAP PO SCH (09:43)
[2019-03-04] MEDS: Metoprolol Tartrate 50 MG TAB PO SCH (20:52)
[2019-03-05] MEDS: Sodium Chloride 0.9% 1,000 ML IV SCH ×2 (02:59→13:00)
[2019-03-05 05:34] LABS: Hemoglobin 10.7 g/dL (14.0-18.0); Mean Corpuscular HGB CONC 32.6 g/dL (32.0-36.0); Mean Platelet Volume 7.9 fL (7.4-10.4); Platelet Count 264 thou/uL (130-400); RBC Distribution Width 12.8 % (11.5-14.5); Red Blood Cell (RBC) Count 3.55 mill/uL (4.70-6.10); White Blood Cell (WBC) Count 10.7 thou/uL (4.8-10.8)
[2019-03-05] MEDS: traMADol HCl 50 MG TAB PO PRN ×3 (05:34→20:02)
[2019-03-05] MEDS: Levothyroxine Sodium 100 MCG TAB PO SCH (05:34)
[2019-03-05] MEDS: predniSONE 5 MG TAB PO SCH (08:39)
[2019-03-05] MEDS: Fish Oil 1,000 MG CAP PO SCH (08:39)
[2019-03-05] MEDS: Aspirin 81 mg Enteric Coated Tablet PO SCH ×2 (08:39→20:02)
[2019-03-05] MEDS: Polyethylene Glycol 3350 17 GM Packet PO PRN (08:39)
[2019-03-05] MEDS: Vit A,C & E/Lutein/Minerals Tablet PO SCH (08:39)
[2019-03-05] MEDS: Ferrous Gluconate 324 MG TAB PO SCH ×2 (08:39→20:02)
[2019-03-05] MEDS: Multivitamin W/ Minerals 1 TAB PO SCH (08:39)
[2019-03-05] MEDS: Senokot S 8.6-50 MG TAB PO SCH ×2 (08:39→20:02)
--- NOTE | 2019-03-05 09:47 | RAD ---
XR Hip Lt 2-3 View HISTORY: Left hip pain COMPARISON: 02/28/2019 FINDINGS: Left hip prosthesis remains in good position and alignment. Cerclage wires surrounding the proximal f emur where a fracture is again seen. Soft tissue air is seen but has improved since the last exam.
[2019-03-05] MEDS: Stress 600 With Zinc 1 TAB PO SCH (10:12)
[2019-03-05] MEDS: Metoprolol Tartrate 50 MG TAB PO SCH (20:02)
[2019-03-06] MEDS: Sodium Chloride 0.9% 1,000 ML IV SCH ×3 (02:29→15:58)
[2019-03-06 05:17] LABS: Hemoglobin 10.7 g/dL (14.0-18.0); Mean Corpuscular HGB CONC 32.1 g/dL (32.0-36.0); Mean Corpuscular Hemoglobin 29.4 pg (27.0-31.0); Mean Corpuscular Volume 91.4 fL (78.0-98.0); Mean Platelet Volume 7.6 fL (7.4-10.4); Platelet Count 333 thou/uL (130-400); RBC Distribution Width 12.8 % (11.5-14.5); Red Blood Cell (RBC) Count 3.63 mill/uL (4.70-6.10); White Blood Cell (WBC) Count 9.9 thou/uL (4.8-10.8)
[2019-03-06] MEDS: Levothyroxine Sodium 100 MCG TAB PO SCH (05:27)
[2019-03-06] MEDS: traMADol HCl 50 MG TAB PO PRN ×3 (05:28→18:29)
[2019-03-06] MEDS ORDERED: Sulfameth/Trimethoprim DS 800-160mg TAB PO SCH (09:00)
[2019-03-06] MEDS: Fish Oil 1,000 MG CAP PO SCH (09:41)
[2019-03-06] MEDS: Aspirin 81 mg Enteric Coated Tablet PO SCH ×2 (09:41→20:52)
[2019-03-06] MEDS: Stress 600 With Zinc 1 TAB PO SCH (09:41)
[2019-03-06] MEDS: Ferrous Gluconate 324 MG TAB PO SCH ×2 (09:41→20:52)
[2019-03-06] MEDS: Senokot S 8.6-50 MG TAB PO SCH ×2 (09:41→20:52)
[2019-03-06] MEDS: Vit A,C & E/Lutein/Minerals Tablet PO SCH (09:41)
[2019-03-06] MEDS: predniSONE 5 MG TAB PO SCH (09:42)
[2019-03-06] MEDS: Multivitamin W/ Minerals 1 TAB PO SCH (09:42)
--- NOTE | 2019-03-06 15:37 | CON ---
DATE OF CONSULTATION: 03/06/2019 REASON FOR CONSULTATION: Left hip revision with positive cultures. 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 Dr. Godoy identified the problem and he carried out removal of the hip and revision. The pathology showed soft tissues, which appeared necrotic, mostly with chronic inflammation and necrosis. The operative report was reviewed and there was a large amount of what Dr. Godoy describes as adverse tissue reaction metallosis and scar without any abductors connected anymore to the greater trochanter. The hip head was removed, the stem was removed, and the acetabulum was removed as well. The patient had a new implant placed with a ceramic head. Cultures from the tissue demonstrated Serratia marcescens on nutrient broth only. Currently, Mr. Antonio is sitting, eating lunch. Denies headaches. No visual symptoms. Moderate sore throat from the intubation. No dyspnea or chest pain. No abdominal pain. A little bit of constipation, but no genitourinary symptoms. Usual joint symptoms related to his rheumatoid arthritis. No neurological symptoms. MEDICAL HISTORY: 1. Rheumatoid arthritis. 2. Coronary artery disease. 3. Prior myocardial infarction. 4. Hypothyroidism. 5. Hyperlipidemia. 6. Hypertension. 7. Bypass graft surgery. 8. Cardiac stents x3. 9. Numerous left hip replacements. ALLERGIES: AMOXICILLIN, METHOTREXATE, AND LEVOFLOXACIN LISTED, AND DEXTROMETHORPHAN. SOCIAL HISTORY: Never smoker. Retired. CURRENT MEDICATIONS: 1. Tylenol. 2. Saragosa. 3. Ecotrin. 4. Benadryl. 5. Sublimaze. 6. Fergon. 7. Fish oil. 8. Synthroid. 9. Lopressor. 10. Narcan. 11. Zofran. 12. Protonix. 13. Prednisone. 14. Bactrim. PHYSICAL EXAMINATION: VITAL SIGNS: With normal temperature since admission, BP 120/50, pulse 78, respirations 16, and O2 saturation 97. SKIN: The surgical site, peripheral IV access. No lymphadenopathy. HEENT: Ocular movements conjugate. Oral cavity normal. NECK: Supple. No jugular vein distention. LUNGS: Symmetric. Clear breath sounds. HEART: S1 and S2. Regular rate. No S3 or S4. ABDOMEN: Soft, not distended or tender. No ascites. No bladder distention. MUSCULOSKELETAL: No joint inflammatory activity outside the involved area. No edema. Pulses 1+ in dorsalis pedis. NEUROLOGIC: Nonfocal. Cognitive function appears to be normal. LABORATORY STUDIES: White cell count was 9.8, went up to 12.8, now is 9.9; hemoglobin 10.7; and platelets 333. Sodium 133 and creatinine 0.97. Liver profile normal. Albumin 3.1. Microbiology with Serratia marcescens, this is from nutritional broth only, this is broadly susceptible organism except for cefoxitin. Chest CT was done on arrival due to concern of PE, that was ruled out. There is a hip x-ray from yesterday with good position and alignment of the left hip prosthesis. ASSESSMENT: 1. Rheumatoid arthritis. 2. 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 3. Serratia marcescens, retrieved from the tissue sample from the hip in small amounts. DISCUSSION: This finding will have to be treated despite the low numbers of organisms. Trimethoprim and sulfamethoxazole penetration in joints is good for trimethoprim, but poor for sulfamethoxazole and I would not trust it for treatment of this type of situation. Either we can use ciprofloxacin after challenge if he tolerates it or we will have to place a PICC line and treat with Rocephin with the usual duration and followup. Job ID: [id number]
[2019-03-06] MEDS: Metoprolol Tartrate 50 MG TAB PO SCH (20:52)
[2019-03-06] MEDS: Cipro 250 MG TAB PO SCH (20:52)
[2019-03-07] MEDS: Sodium Chloride 0.9% 1,000 ML IV SCH ×3 (04:23→20:23)
[2019-03-07] MEDS: Cipro 250 MG TAB PO SCH ×2 (06:35→20:21)
[2019-03-07] MEDS: Levothyroxine Sodium 100 MCG TAB PO SCH (06:36)
[2019-03-07] MEDS: traMADol HCl 50 MG TAB PO PRN ×2 (06:38→13:14)
[2019-03-07] MEDS: Polyethylene Glycol 3350 17 GM Packet PO PRN (08:45)
[2019-03-07] MEDS: predniSONE 5 MG TAB PO SCH (08:45)
[2019-03-07] MEDS: Vit A,C & E/Lutein/Minerals Tablet PO SCH (08:45)
[2019-03-07] MEDS: Fish Oil 1,000 MG CAP PO SCH (08:45)
[2019-03-07] MEDS: Senokot S 8.6-50 MG TAB PO SCH ×2 (08:45→20:21)
[2019-03-07] MEDS: Stress 600 With Zinc 1 TAB PO SCH (08:46)
[2019-03-07] MEDS: Multivitamin W/ Minerals 1 TAB PO SCH (08:46)
[2019-03-07] MEDS: Ferrous Gluconate 324 MG TAB PO SCH ×2 (08:46→20:22)
[2019-03-07] MEDS: Aspirin 81 mg Enteric Coated Tablet PO SCH ×2 (08:46→20:21)
--- NOTE | 2019-03-07 13:39 | PRG ---
DATE OF SERVICE: 03/07/2019 SUBJECTIVE: Mehul is an 83-year-old male, who is postop day 5 from a revision left total hip arthroplasty. His culture demonstrated Serratia marcescens, pansensitive with the exception of cefoxitin. Dr. Thakur was consulted yesterday and his note was reviewed. Low numbers of organisms were noted and he recommended a trial of Cipro followed by Rocephin and PICC line if he cannot tolerate the ciprofloxacin. OBJECTIVE: Incision is clean. There is no strikethrough. No erythema. He is neurovascularly intact in both lower extremities. No malrotation or shortening. LABORATORY DATA: Hemoglobin and hematocrit of 10.7 and 33.2. IMPRESSION: Revision left total hip arthroplasty secondary to a seroma and metallosis with positive cultures for Serratia. PLAN: We will initiate antibiotic changes as discussed by Dr. Thakur and placement is pending. Job ID: [id number]
--- NOTE | 2019-03-07 17:26 | PRG ---
DATE OF SERVICE: 03/07/2019 SUBJECTIVE: Feeling well, tolerated Cipro without problems. Minor pain in the hip. No diarrhea. Voiding without difficulty. OBJECTIVE: VITAL SIGNS: Normal. LUNGS: Clear. HEART: S1, S2, regular rate. ABDOMEN: Soft. Hip with the usual appearance. The pathology of the specimen with soft tissue of chronic inflammation necrosis. 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 Serratia marcescens retrieved from tissue sample from the deep aspect of the hip in small amount. The ciprofloxacin was well tolerated and now he can be discharged on oral Cipro 500 b.i.d. for a total of 6 weeks. The end date of therapy will be April 18. Weekly labs including CBC, CRP, comprehensive metabolic panel. After the end of therapy, I would probably discontinue antimicrobials rather than keep him on suppressive therapy. Job ID: [id number]
[2019-03-07] MEDS: Metoprolol Tartrate 50 MG TAB PO SCH (20:22)
[2019-03-08] MEDS: Levothyroxine Sodium 100 MCG TAB PO SCH (05:41)
[2019-03-08] MEDS: Cipro 250 MG TAB PO SCH ×2 (05:41→20:03)
[2019-03-08] MEDS: traMADol HCl 50 MG TAB PO PRN ×2 (05:42→20:04)
[2019-03-08] MEDS: Aspirin 81 mg Enteric Coated Tablet PO SCH ×2 (09:49→20:03)
[2019-03-08] MEDS: Multivitamin W/ Minerals 1 TAB PO SCH (09:49)
[2019-03-08] MEDS: Ferrous Gluconate 324 MG TAB PO SCH ×2 (09:49→20:03)
[2019-03-08] MEDS: Fish Oil 1,000 MG CAP PO SCH (09:49)
[2019-03-08] MEDS: predniSONE 5 MG TAB PO SCH (09:50)
[2019-03-08] MEDS: Vit A,C & E/Lutein/Minerals Tablet PO SCH (09:50)
[2019-03-08] MEDS: Senokot S 8.6-50 MG TAB PO SCH ×2 (09:50→20:05)
[2019-03-08] MEDS: Sodium Chloride 0.9% 1,000 ML IV SCH ×2 (09:52→20:00)
[2019-03-08] MEDS: Stress 600 With Zinc 1 TAB PO SCH (19:33)
[2019-03-08] MEDS: Metoprolol Tartrate 50 MG TAB PO SCH (20:03)
[2019-03-09] MEDS: Cipro 250 MG TAB PO SCH (05:57)
[2019-03-09] MEDS: Levothyroxine Sodium 100 MCG TAB PO SCH (05:57)
[2019-03-09] MEDS: Aspirin 81 mg Enteric Coated Tablet PO SCH (09:19)
[2019-03-09] MEDS: predniSONE 5 MG TAB PO SCH (09:20)
[2019-03-09] MEDS: Stress 600 With Zinc 1 TAB PO SCH (09:20)
[2019-03-09] MEDS: Vit A,C & E/Lutein/Minerals Tablet PO SCH (09:20)
[2019-03-09] MEDS: Senokot S 8.6-50 MG TAB PO SCH (09:20)
[2019-03-09] MEDS: Ferrous Gluconate 324 MG TAB PO SCH (09:20)
[2019-03-09] MEDS: Multivitamin W/ Minerals 1 TAB PO SCH (09:20)
[2019-03-09] MEDS: Fish Oil 1,000 MG CAP PO SCH (09:21)
[2019-03-09] MEDS: Sodium Chloride 0.9% 1,000 ML IV SCH (09:23)
[2019-03-09 11:42] VITALS: BP 152/76; TEMP 98.4
== END 2019-03-09 11:40 | disposition home or self-care (01) | DRG 467 ==
LOC: SURG A 02-28 07:17 → SJJU 02-28 13:51
PROVIDERS: ADMIT Orthopaedic Surgery; ATTEND Orthopaedic Surgery
PROC: 0SRB04A Replacement of Left Hip Joint with Ceramic on Polyethylene Synthetic Substitute, Uncemented, Open Approach (ICD-10-PCS; principal; 2019-02-28)
PROC: 0SPB0JZ Removal of Synthetic Substitute from Left Hip Joint, Open Approach (ICD-10-PCS; 2019-02-28)
DX: T84.091A Other mechanical complication of internal left hip prosthesis, initial encounter (principal); M96.842 Postprocedural seroma of a musculoskeletal structure following a musculoskeletal system procedure; I96 Gangrene, not elsewhere classified; Y83.8 Other surgical procedures as the cause of abnormal reaction of the patient, or of later complication, without mention of misadventure at the time of the procedure; I10 Essential (primary) hypertension; E78.5 Hyperlipidemia, unspecified; I25.10 Atherosclerotic heart disease of native coronary artery without angina pectoris; E03.9 Hypothyroidism, unspecified; B96.89 Other specified bacterial agents as the cause of diseases classified elsewhere; Z96.642 Presence of left artificial hip joint; M06.9 Rheumatoid arthritis, unspecified; G89.29 Other chronic pain; Z95.1 Presence of aortocoronary bypass graft; Z79.890 Hormone replacement therapy; Z88.0 Allergy status to penicillin; Z88.1 Allergy status to other antibiotic agents; Z88.8 Allergy status to other drugs, medicaments and biological substances; Z95.5 Presence of coronary angioplasty implant and graft; I25.2 Old myocardial infarction
CPT/HCPCS: 36415; 71275; 80053; 85027; 87070; 87077; 87186; 87205; 88305; 93005; 93010; C1776; J1580; J1650; J1956; J2001; J2250; J2405; J2704; J2795; J3010; J3370; J3490; J7512; Q9967

== ENCOUNTER 2019-02-24 10:14 | Outpatient (CLI) | payer MEDICARE | END 2019-02-24 10:15 | disposition home or self-care (01) | LOC: LABBT 10:14 | PROVIDERS: ATTEND Orthopaedic Surgery | DX: Z01.812 Encounter for preprocedural laboratory examination (principal); T84.011A Broken internal left hip prosthesis, initial encounter | CPT/HCPCS: 86850; 86900; 86901 ==

== ENCOUNTER 2019-04-14 07:48 | Day surgery (SDC) | payer MEDICARE ==
[2019-04-14 08:56] LABS: Hemoglobin 15.6 g/dL (14.0-18.0); Mean Corpuscular HGB CONC 32.4 g/dL (32.0-36.0); Mean Corpuscular Hemoglobin 29.9 pg (27.0-31.0); Mean Corpuscular Volume 92.1 fL (78.0-98.0); Mean Platelet Volume 6.6 fL (7.4-10.4); Platelet Count 368 thou/uL (130-400); Red Blood Cell (RBC) Count 5.22 mill/uL (4.70-6.10)
[2019-04-14 09:04] LABS: ALT (SGPT) 14 U/L (8-55); AST (SGOT) 23 U/L (5-34); Albumin 4.2 g/dL (3.4-4.8); Alkaline Phosphatase 77 U/L (40-110); Anion Gap 12 mmol/L (10-20); BUN (Urea Nitrogen) 16 mg/dL (8.4-25.7); Bilirubin, Total 0.7 mg/dL (0.2-1.2); Calc. Creatinine Clearance 0 mL/min (70-130); Calcium 9.5 mg/dL (7.8-10.44); Carbon Dioxide 30 mmol/L (23-31); Chloride 99 mmol/L (98-107); Estimated GFR-MDRD 70; Globulin 2.9 g/dL (2.4-3.5); Glucose 133 mg/dL (83-110); Potassium 4.8 mmol/L (3.5-5.1); Protein, Total 7.1 g/dL (5.8-8.1); Sodium 136 mmol/L (136-145)
[2019-04-14] MEDS ORDERED: PROPOFOL 20 ML ONE (09:06)
[2019-04-14 09:15] LABS: #Eosinphils 0.1 thou/uL (0.0-0.7); #Lymphocytes 2.1 thou/uL (1.20-3.40); #Monocytes 1.1 thou/uL (0.11-0.59); #Neutrophils 12.7 thou/uL (1.40-6.50); %Basophils 0.1 % (0.0-1.0); %Eosinophils 0.4 % (0.0-10.0); %Lymphocytes 13.2 % (21.0-51.0); %Monocytes 6.7 % (0.0-10.0); %Neutrophils 79.7 % (42.0-75.0); Band 10 % (5-11); Lymphocytes 7 % (21-51); MDiff Complete? YES; Monocytes 7 % (0-10); Neutrophil 72 % (42-75); Platelet Morphology Comment Appears Adequate; RBC Morphology Normal; Reactive Lymphocytes 4 % (0-10)
--- NOTE | 2019-04-14 10:07 | RAD ---
LEFT HIP TWO VIEWS: History: Fall, left hip pain. FINDINGS/IMPRESSION: There are changes of total hip arthroplasty with superior dislocation. Cerclage wires surrounding the proximal femur where the fracture is again seen as on the exam of 03-05-2019. POS: [facility]
--- NOTE | 2019-04-14 10:09 | RAD ---
AP PELVIS: History: Fall. Left hip pain. FINDINGS/IMPRESSION: There are changes of left hip arthroplasty with superior dislocation. POS: [facility]
[2019-04-14] MEDS ORDERED: Lidocaine 1% PF 5 ML VIAL ONE (11:26)
[2019-04-14] MEDS ORDERED: PROPOFOL 200 MG/20 ML VIAL ONE (11:26)
[2019-04-14] MEDS ORDERED: PHENYLEPHRINE-NS 100 MCG/ML 10 ML SYRINGE ONE (11:26)
[2019-04-14] MEDS ORDERED: Fentanyl 100 MCG/2 ML VIAL ONE (12:08)
[2019-04-14] MEDS ORDERED: Morphine 2 MG/ML SYRINGE ONE (12:13)
--- NOTE | 2019-04-14 12:53 | RAD ---
XR Hip Lt 2-3 View INDICATION: Left hip post reduction images COMPARISON: Left hip radiograph dated 06/13/2019 8:01 AM FINDINGS: Bones: Diffuse osteopenia is again seen. There are cerclage bands surrounding a periprosthetic proxim al left femoral shaft fracture. Hip joint: There is been interval reduction of the posterior superior left hip prosthesis dislocation . SI joints and symphysis pubis: Mild degenerative changes Intrapelvic contents: Visualized bowel gas pattern is within normal limits. Surrounding soft tissues: Radiographically normal. IMPRESSION: 1. Interval reduction of the posterior superior left hip dislocation. 2. Stable appearance of the periprosthetic left femur fracture.
--- NOTE | 2019-04-14 12:56 | CON ---
DATE OF CONSULTATION: 04/14/2019 CHIEF COMPLAINT: Left hip pain. HISTORY OF PRESENT ILLNESS: Mr. Antonio is a pleasant 83-year-old male, who has a history of a dislocation of his left hip, recently had a revision, which is secondary to a failed total hip arthroplasty, [id number]. The patient had a history of Serratia cultures positive. The patient had a fall, was brought into the ER and had a dislocated hip. The patient's issue is that he has almost no abductor left from the metallosis, destroyed the majority of the hip adductors. There is almost nothing, but his IT band holding it in place. The patient is currently in the Day Stay hold for a closed reduction of his hip. PHYSICAL EXAMINATION: GENERAL: Alert and oriented male, in no acute distress. EXTREMITIES: Shortening, externally rotated in his left leg. Neurovascularly intact. DIAGNOSTIC DATA: Radiographs show potential change in the cup position, but a stable trochanteric osteotomy with cerclage wires of his MDM hip. IMPRESSION: Dislocation of left revision total hip arthroplasty. ASSESSMENT AND PLAN: The patient will be taken to the operating room for revision for closed reduction. He may need revision if his cup appears unstable. We will take some picture intraoperatively to look at him. We will close reduce with reduction. The patient understands the risks and benefits of the procedure. He understands that he may require revision of his cup, taken to the operative suite today. Job ID: [id number]
[2019-04-14] MEDS ORDERED: Promethazine HCl 25 MG/ML VIAL IM PRN ×2 (12:58→14:47)
[2019-04-14] MEDS ORDERED: Ondansetron HCl/PF 4 MG/2 ML Vial IVP PRN (12:58)
[2019-04-14] MEDS ORDERED: Promethazine HCl 25 MG/ML VIAL SLOW IVP PRN (12:58)
[2019-04-14] MEDS ORDERED: Zolpidem Tartrate 5 MG TAB PO PRN (14:47)
[2019-04-14] MEDS ORDERED: Acetaminophen 325 MG TAB PO PRN (14:47)
[2019-04-14] MEDS ORDERED: Fentanyl 100 MCG/2 ML VIAL SLOW IVP PRN (14:47)
[2019-04-14] MEDS ORDERED: diphenhydrAMINE 25 MG CAP PO PRN (14:47)
[2019-04-14] MEDS ORDERED: Ondansetron PF 4 MG/2 ML Vial IVP PRN (14:47)
[2019-04-14 15:56] VITALS: BMI 27.2
[2019-04-14] MEDS: traMADol HCl 50 MG TAB PO PRN (18:30)
[2019-04-14] MEDS: Aspirin 81 mg Enteric Coated Tablet PO SCH (20:20)
[2019-04-15] MEDS: traMADol HCl 50 MG TAB PO PRN (05:39)
[2019-04-15] MEDS ORDERED: FLU VACC TS2019-20(65YR UP)/PF 180 MCG/0.5 ML SYRINGE IM ONE (09:00)
[2019-04-15] MEDS: Aspirin 81 mg Enteric Coated Tablet PO SCH (09:52)
[2019-04-15] MEDS ORDERED: traMADol HCl 50 MG TAB PO PRN (11:07)
--- NOTE | 2019-04-15 11:10 | RAD ---
2 views of the left hip: 04/15/2019 COMPARISON: 04/14/2019 HISTORY: Imaging following ambulation FINDINGS: The previously noted dislocation of the left hip prosthesis on the 04/14/2019 examination angeles s been reduced. On the current study there is no evidence for dislocation. Soft tissue swelling is seen superior to the left greater trochanter. There are cerclage wires associated with the proximal l eft femoral shaft. There is a stable nondisplaced fracture involving the proximal left femur between the 2 distalmost cerclage wires. IMPRESSION: No evidence for dislocation of the left hip prosthesis. Stable proximal left femoral shaf t fracture as above.
[2019-04-15 11:20] VITALS: BP 121/71; TEMP 98
[2019-04-15] MEDS ORDERED: Metoprolol Tartrate 50 MG TAB PO SCH (21:00)
[2019-04-16] MEDS ORDERED: Levothyroxine Sodium 50 MCG TAB PO SCH (06:00)
[2019-04-16] MEDS ORDERED: Aspirin 325 MG TAB PO SCH (09:00)
--- NOTE | 2019-04-17 08:55 | OP ---
DATE OF PROCEDURE: 04/14/2019 PREOPERATIVE DIAGNOSIS: Left revision total hip arthroplasty with dislocation. POSTOPERATIVE DIAGNOSIS: Left revision total hip arthroplasty with dislocation. PROCEDURES PERFORMED: Closed reduction of hip dislocation, total hip arthroplasty. SCIENTOLOGIST: None. ANESTHESIOLOGIST: Med Ma MD ANESTHESIA: The patient received an LMA. ESTIMATED BLOOD LOSS: None. TOURNIQUET TIME: None. IMPLANTS: None. ANTIBIOTICS: None. COMPLICATIONS: None. INDICATIONS FOR PROCEDURE: Mr. 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 The patient had revision done right at the end of the year last year. The patient had dislocation, getting up from a chair. The patient had MDM liner and complication of having no abductors left. The patient dislocated without any fall. I discussed with the family the risks and benefits of a closed reduction. We will admit the patient for obs because of the concern for mobilizing and redislocation. Will keep in a knee immobilizer afterwards. I discussed the patient may need revision of his cup and potentially revision to a constrained liner. He understands all this. The patient elected to proceed, understood the risks and benefits, pain, scar, bleeding infection, need for further surgeries, loss of life or limb, blood clots. DESCRIPTION OF PROCEDURE: After time-out was performed designating the patient' s left lower extremity as the operative site in line traction was able to reduce the hip. It was stable. The hip showed flexion, internal rotation about 20, external rotation of 30. I did not feel it frankly dislocate out, but there was not much holding it in. I was concerned about its instability. I took AP and lateral x-rays showing the hip and placed a knee immobilizer. The patient will be admitted just for obs, post reduction ambulation films. We need to keep him touchdown weightbearing left lower extremity. Will need close followup. Job ID: [id number] [facility]
== END 2019-04-15 13:37 | disposition home or self-care (01) ==
LOC: ERS 07:48 → SDC 11:44 → SURG A 14:23 → SDC 15:34 → SURG A 15:35 → SDC 04-15 13:37
PROVIDERS: ATTEND Orthopaedic Surgery
PROC: 0SWBXJZ Revision of Synthetic Substitute in Left Hip Joint, External Approach (ICD-10-PCS; principal; 2019-04-14)
DX: T84.021A Dislocation of internal left hip prosthesis, initial encounter (principal); I25.10 Atherosclerotic heart disease of native coronary artery without angina pectoris; I10 Essential (primary) hypertension; E78.5 Hyperlipidemia, unspecified; M06.9 Rheumatoid arthritis, unspecified; G89.29 Other chronic pain; Z79.82 Long term (current) use of aspirin; Z79.899 Other long term (current) drug therapy; Z88.0 Allergy status to penicillin; Z88.1 Allergy status to other antibiotic agents; Z88.8 Allergy status to other drugs, medicaments and biological substances; Z91.048 Other nonmedicinal substance allergy status; Z95.1 Presence of aortocoronary bypass graft
CPT/HCPCS: 36415; 72170; 80053; 85025; J2270; J2704; J3010

== ENCOUNTER 2019-04-15 17:33 | Inpatient (IN) | payer MEDICARE ==
[2019-04-15] MEDS ORDERED: Fentanyl 100 MCG/2 ML VIAL ONE ×2 (18:34→20:09)
--- NOTE | 2019-04-15 18:52 | RAD ---
Exam:Left hip 2 views HISTORY: Dislocation COMPARISON: 04/15/2019 FINDINGS: There is dislocation of the left hip prosthesis. The femoral component is displaced in a ce phalad direction. There is associated foreshortening of the left lower extremity. IMPRESSION: Left hip prosthesis dislocation.
[2019-04-15] MEDS ORDERED: Ketorolac Tromethamine 30 MG/ML VIAL ONE (19:38)
[2019-04-15] MEDS ORDERED: Propofol 1,000 MG/100 ML VIAL IV ONE (20:08)
[2019-04-15] MEDS ORDERED: PROPOFOL 20 ML ONE (20:13)
[2019-04-15 20:45] LABS: #Basophils 0.1 thou/uL (0.0-0.2); #Eosinphils 0.1 thou/uL (0.0-0.7); #Monocytes 1.1 thou/uL (0.11-0.59); #Neutrophils 7.3 thou/uL (1.40-6.50); %Basophils 0.7 % (0.0-1.0); %Eosinophils 1.2 % (0.0-10.0); %Lymphocytes 25.7 % (21.0-51.0); %Monocytes 9.4 % (0.0-10.0); Hemoglobin 14.4 g/dL (14.0-18.0); Mean Corpuscular Volume 91.1 fL (78.0-98.0); Mean Platelet Volume 6.5 fL (7.4-10.4); Platelet Count 300 thou/uL (130-400); RBC Distribution Width 12.8 % (11.5-14.5); Red Blood Cell (RBC) Count 4.65 mill/uL (4.70-6.10); White Blood Cell (WBC) Count 11.6 thou/uL (4.8-10.8)
[2019-04-15 20:52] LABS: PTT 29.9 SEC (22.9-36.1); Prothrombin Time 12.9 SEC (12.0-14.7)
[2019-04-15 21:06] LABS: ALT (SGPT) 12 U/L (8-55); AST (SGOT) 23 U/L (5-34); Albumin 3.7 g/dL (3.4-4.8); Alkaline Phosphatase 69 U/L (40-110); Anion Gap 13 mmol/L (10-20); BUN (Urea Nitrogen) 16 mg/dL (8.4-25.7); Bilirubin, Total 0.5 mg/dL (0.2-1.2); Calc. Creatinine Clearance 0 mL/min (70-130); Calcium 8.6 mg/dL (7.8-10.44); Carbon Dioxide 28 mmol/L (23-31); Chloride 101 mmol/L (98-107); Estimated GFR-MDRD 81; Globulin 2.6 g/dL (2.4-3.5); Glucose 120 mg/dL (83-110); Potassium 4.1 mmol/L (3.5-5.1); Protein, Total 6.3 g/dL (5.8-8.1); Sodium 138 mmol/L (136-145)
[2019-04-15] MEDS ORDERED: Fentanyl 100 MCG/2 ML VIAL SLOW IVP PRN (22:34)
[2019-04-15] MEDS ORDERED: Ondansetron ODT 4 MG TAB SL PRN (22:35)
[2019-04-15] MEDS ORDERED: HYDROcodone/Acetaminophen 5/325 mg Tablet PO PRN ×2 (22:35)
[2019-04-15] MEDS ORDERED: Ondansetron PF 4 MG/2 ML Vial IVP PRN (22:35)
[2019-04-15] MEDS ORDERED: Sodium Chloride 0.9% 1,000 ML IV SCH (22:45)
--- NOTE | 2019-04-16 00:48 | HP ---
CHIEF COMPLAINT: Left hip pain. HISTORY OF PRESENT ILLNESS: Mehul is an 83-year-old male, who was recently discharged from the hospital for left hip instability and dislocation. In fact, he was discharged this morning and he was at home for about a half an hour when he sustained a second dislocation of the left hip. Unfortunately, he has recently had a revision arthroplasty and serial radiographs have demonstrated some change in position of his acetabular cup and he also had a history of a septic process in the left hip. His last revision was 7 weeks ago. He has been readmitted and I have discussed with Dr. Godoy the possibility of performing a second revision tomorrow morning and this is our plan currently. PAST MEDICAL HISTORY: Coronary atherosclerosis, rheumatoid arthritis, hypertension, hypothyroidism, and hyperlipidemia. PAST SURGICAL HISTORY: Prior cardiac stent, CABG, and left hip arthroplasty with revision 7 weeks ago and closed reduction 2 days ago. MEDICATIONS: Toprol 50, methotrexate, levothyroxine, aspirin. ALLERGIES: THE PATIENT CLAIMS PENICILLIN. SOCIAL HISTORY: He denies any ethanol, tobacco, or illicit drug abuse. He is and retired. PHYSICAL EXAMINATION: VITAL SIGNS: See nursing notes. GENERAL: This is a well-nourished, well-developed male, appearing stated age, in no apparent distress or discomfort. He is alert, oriented, responsive, appropriate with examiner. Grossly nonfocal. HEENT: Head is normocephalic. Pupils are equal, round, and reactive to light. Oropharynx is benign. CHEST: Clear to auscultation. HEART: Regular rhythm. ABDOMEN: Soft and benign. EXTREMITIES: No clubbing, cyanosis, or edema. Shortening of the left lower extremity is noted. He is neurovascularly intact in the left lower extremity. There are no breaks in the skin and around the hip and no bruising. Has no erythema. No significant rotation is noted, but shortening is noticeable. NEUROLOGIC: Cranial nerves 2 through 12 grossly intact. IMAGING STUDIES: AP pelvis demonstrates dislocation of his femoral head consistent with posterior dislocation. IMPRESSION: Unstable left hip with failed revision arthroplasty and current hip dislocation. PLAN: 1. The risks, benefits, options, alternatives, and rationale for proceeding with closed reduction in the emergency room for comfort has been explained in great detail. The patient is ready to proceed. All questions were answered. No guarantee of outcome stated or implied. 2. The risks, benefits, options, alternatives, and rationale for proceeding with a revision arthroplasty tomorrow has been explained in great detail. The patient is ready to proceed. All questions were answered. No guarantee of outcome stated or implied. 3. The patient has been posted for tomorrow to follow normal preoperative labs and evaluation will be obtained. Job ID: [id number]
[2019-04-16 01:00] VITALS: BMI 27.1
[2019-04-16] MEDS ORDERED: ALIROCUMAB 150 MG SC SCH (01:45)
[2019-04-16] MEDS ORDERED: traMADol HCl 50 MG TAB PO PRN ×2 (01:55→19:34)
[2019-04-16] MEDS ORDERED: Levothyroxine Sodium 100 MCG TAB PO SCH (06:00)
--- NOTE | 2019-04-16 07:56 | RAD ---
FRONTAL RADIOGRAPH CHEST: 04/16/2019 HISTORY: Preoperative patient. COMPARISON: 12/17/2017 FINDINGS: Stable marked enlargement of the left hemidiaphragm with limited assessment of the left lung base. St able midline sternotomy wires and mediastinal clips. The right lung is clear. IMPRESSION: Stable appearance of the chest as detailed above. POS: [facility]
[2019-04-16] MEDS ORDERED: Metoprolol Tartrate 50 MG TAB PO SCH ×3 (08:00→21:00)
[2019-04-16] MEDS ORDERED: predniSONE 5 MG TAB PO SCH (08:00)
[2019-04-16] MEDS: Fish Oil 1,000 MG CAP PO SCH (08:54)
[2019-04-16] MEDS ORDERED: MILK THISTLE PO SCH (09:00)
[2019-04-16] MEDS ORDERED: Aspirin 325 MG TAB PO SCH (09:00)
[2019-04-16] MEDS ORDERED: Multivitamin W/ Minerals 1 TAB PO SCH (09:00)
[2019-04-16] MEDS ORDERED: Vit A,C & E/Lutein/Minerals Tablet PO SCH (09:00)
[2019-04-16] MEDS ORDERED: Folic Acid 1 MG TAB PO SCH (09:00)
[2019-04-16] MEDS ORDERED: Stress 600 With Zinc 1 TAB PO SCH (09:00)
[2019-04-16] MEDS ORDERED: Aspirin 81 mg Enteric Coated Tablet PO SCH ×2 (09:00→21:00)
[2019-04-16] MEDS ORDERED: Rocuronium Bromide 10 MG/ML (10ML VIAL) ONE (10:01)
[2019-04-16] MEDS ORDERED: Glycopyrrolate 0.2 MG/ML 5 ML SYRINGE ONE (10:01)
[2019-04-16] MEDS ORDERED: PROPOFOL 200 MG/20 ML VIAL ONE (10:01)
[2019-04-16] MEDS ORDERED: EPHEDRINE 25 MG/5 ML SYRINGE ONE (10:01)
[2019-04-16] MEDS ORDERED: Lidocaine 1% PF 5 ML VIAL ONE (10:01)
[2019-04-16] MEDS ORDERED: Ondansetron HCl/PF 4 MG/2 ML Vial IVP PRN ×2 (14:21→20:07)
[2019-04-16] MEDS ORDERED: Vancomycin 1.5 GRAM/300 ML BAG 1.5 GM/300 ML BAG ONE (17:08)
[2019-04-16] MEDS ORDERED: Gentamicin Sulfate 80 MG in Premix Bag 1 BAG IVPB SCH (17:15)
[2019-04-16] MEDS ORDERED: Phenylephrine HCL 10 MG/ML VIAL ONE (17:43)
[2019-04-16] MEDS ORDERED: Fentanyl 100 MCG/2 ML VIAL ONE ×2 (17:55→19:53)
[2019-04-16] MEDS ORDERED: Sodium Chloride 0.9% 100 ML ONE (18:03)
[2019-04-16] MEDS ORDERED: Tranexamic Acid 1,000 MG/10 ML VIAL ONE (18:03)
[2019-04-16] MEDS ORDERED: Gentamicin 80 MG/2 ML VIAL ONE (18:42)
[2019-04-16] MEDS ORDERED: Ondansetron PF 4 MG/2 ML Vial IVP PRN (19:32)
[2019-04-16] MEDS ORDERED: Acetaminophen 325 MG TAB PO PRN (19:32)
[2019-04-16] MEDS ORDERED: HYDROcodone/Acetaminophen 10/325 mg Tablet PO PRN (19:32)
[2019-04-16] MEDS ORDERED: diphenhydrAMINE 25 MG CAP PO PRN (19:32)
[2019-04-16] MEDS ORDERED: Zolpidem Tartrate 5 MG TAB PO PRN (19:32)
[2019-04-16] MEDS ORDERED: Promethazine HCl 25 MG/ML VIAL IM PRN (19:32)
[2019-04-16] MEDS ORDERED: RISEDRONATE SODIUM 150 MG PO SCH (19:45)
[2019-04-16] MEDS: Dextrose 5 %-0.45 % NaCl 1,000 ML IV SCH (20:23)
[2019-04-16] MEDS ORDERED: cloNIDine 0.1 MG TAB PO PRN (21:32)
[2019-04-16] MEDS: Aspirin 81 mg Enteric Coated Tablet PO SCH (21:35)
[2019-04-16] MEDS: Metoprolol Tartrate 50 MG TAB PO SCH (21:35)
[2019-04-16] MEDS: Ferrous Gluconate 324 MG TAB PO SCH (21:35)
[2019-04-16] MEDS: Ciprofloxacin 500 MG TAB PO SCH (21:36)
[2019-04-16] MEDS: Senokot S 8.6-50 MG TAB PO SCH (21:36)
[2019-04-16] MEDS: HYDROcodone/Acetaminophen 10/325 mg Tablet PO PRN (23:14)
[2019-04-17] MEDS ORDERED: Vancomycin 1.5 GRAM/300 ML BAG 1.5 GM in Premix Bag 1 BAG IVPB SCH (05:00)
[2019-04-17 05:10] LABS: Hemoglobin 13.3 g/dL (14.0-18.0); Mean Corpuscular HGB CONC 31.5 g/dL (32.0-36.0); Mean Platelet Volume 6.7 fL (7.4-10.4); Platelet Count 304 thou/uL (130-400); RBC Distribution Width 12.8 % (11.5-14.5); Red Blood Cell (RBC) Count 4.61 mill/uL (4.70-6.10); White Blood Cell (WBC) Count 10.6 thou/uL (4.8-10.8)
[2019-04-17] MEDS: Dextrose 5 %-0.45 % NaCl 1,000 ML IV SCH ×2 (06:19→07:24)
[2019-04-17] MEDS: Levothyroxine Sodium 100 MCG TAB PO SCH (06:19)
[2019-04-17] MEDS: Ciprofloxacin 500 MG TAB PO SCH ×2 (06:19→20:07)
[2019-04-17] MEDS: HYDROcodone/Acetaminophen 10/325 mg Tablet PO PRN ×2 (06:30→15:58)
--- NOTE | 2019-04-17 08:38 | OP ---
DATE OF PROCEDURE: 04/16/2019 PREOPERATIVE DIAGNOSIS: Dislocated left revision hip replacement. POSTOPERATIVE DIAGNOSIS: Dislocated left revision hip replacement. PROCEDURE PERFORMED: Revision of one component left total hip arthroplasty. PARTS CATALOGER: Kala. BLOOD LOSS: 200. SPECIMENS: Cultures. DRAINS: None. COMPLICATION: None. DESCRIPTION OF PROCEDURE: The patient was taken to the operating room, where general anesthesia was induced. He was placed in right lateral decubitus position, received gentamicin and vancomycin preoperatively as well as TXA. The left hip was prepped and draped in usual sterile fashion. I opened a portion of the old scar. Dissection was carried down through the IT band. There was a large hematoma from previous dislocations. The patient has no abductors as a result of severe adverse local tissue reaction with [id number]-wp-[id number] hip. The hip was reduced at the time of surgery. I dislocated the hip and removed the femoral head. I removed the liner. The cup was extremely well fixed and could not be displaced with a mallet. I, therefore, elected to use a constrained tripolar type device from [employer]. This was impacted into place. I shortened the neck by 4 mm, used a standard metal head 28 mm, reduced the hip without difficulty. Stability was good as much as could be determined with the constrained device. Irrigation was performed with pulsatile lavage, total of 5 L. IT band was repaired with #2 Vicryl and #2 Quill. Subcu was closed with 0 Quill. Skin was closed with #2 Prolene. Sterile dressing was applied. The family was informed of the high risk of recurrent dislocations and problems as a result of complete absence of the abductors. Job ID: [id number]
[2019-04-17] MEDS ORDERED: Non-Formulary Item 1 EACH (Multivit-Min/Fa/Lycopen/Lutein [Centrum Silver Tablet] 1 EACH) PO SCH (09:00)
[2019-04-17] MEDS: Senokot S 8.6-50 MG TAB PO SCH ×2 (09:36→21:11)
[2019-04-17] MEDS: Vit A,C & E/Lutein/Minerals Tablet PO SCH (09:36)
[2019-04-17] MEDS: Aspirin 81 mg Enteric Coated Tablet PO SCH ×2 (09:36→21:10)
[2019-04-17] MEDS: Fish Oil 1,000 MG CAP PO SCH (09:37)
[2019-04-17] MEDS: Multivitamin W/ Minerals 1 TAB PO SCH (09:37)
[2019-04-17] MEDS: Ferrous Gluconate 324 MG TAB PO SCH ×2 (09:37→21:11)
[2019-04-17] MEDS: Stress 600 With Zinc 1 TAB PO SCH (09:37)
[2019-04-17] MEDS: predniSONE 5 MG TAB PO SCH (09:38)
[2019-04-17] MEDS: Folic Acid 1 MG TAB PO SCH (09:38)
--- NOTE | 2019-04-17 11:19 | RAD ---
2 VIEWS LEFT HIP: Date: 04/17/2019 COMPARISON: 04/15/2019. HISTORY: Postop left hip arthroplasty. FINDINGS: 2 views of the left hip show the patient to be status post left hip arthroplasty without perihardware lucency or fracture. Air in the soft tissues is from recent surgery. IMPRESSION: Status post left hip arthroplasty without evidence of complication. POS: [facility]
[2019-04-17] MEDS: Polyethylene Glycol 3350 17 GM Packet PO SCH (21:10)
[2019-04-17] MEDS: Metoprolol Tartrate 50 MG TAB PO SCH (21:10)
[2019-04-18] MEDS: Dextrose 5 %-0.45 % NaCl 1,000 ML IV SCH ×2 (01:08→10:32)
[2019-04-18 05:08] LABS: Hemoglobin 13.4 g/dL (14.0-18.0); Mean Corpuscular HGB CONC 32.5 g/dL (32.0-36.0); Mean Corpuscular Hemoglobin 29.8 pg (27.0-31.0); Mean Corpuscular Volume 91.5 fL (78.0-98.0); Mean Platelet Volume 6.8 fL (7.4-10.4); Platelet Count 279 thou/uL (130-400); RBC Distribution Width 12.7 % (11.5-14.5); Red Blood Cell (RBC) Count 4.52 mill/uL (4.70-6.10); White Blood Cell (WBC) Count 10.4 thou/uL (4.8-10.8)
[2019-04-18] MEDS: Levothyroxine Sodium 100 MCG TAB PO SCH (05:42)
[2019-04-18] MEDS: Ciprofloxacin 500 MG TAB PO SCH (05:42)
[2019-04-18] MEDS: predniSONE 5 MG TAB PO SCH (08:46)
[2019-04-18] MEDS: Stress 600 With Zinc 1 TAB PO SCH (08:46)
[2019-04-18] MEDS: Multivitamin W/ Minerals 1 TAB PO SCH (08:47)
[2019-04-18] MEDS: Aspirin 81 mg Enteric Coated Tablet PO SCH (08:47)
[2019-04-18] MEDS: Ferrous Gluconate 324 MG TAB PO SCH (08:47)
[2019-04-18] MEDS: Vit A,C & E/Lutein/Minerals Tablet PO SCH (08:47)
[2019-04-18] MEDS: Fish Oil 1,000 MG CAP PO SCH (08:47)
[2019-04-18] MEDS: Folic Acid 1 MG TAB PO SCH (08:47)
[2019-04-18] MEDS: Polyethylene Glycol 3350 17 GM Packet PO SCH (08:47)
[2019-04-18] MEDS: Senokot S 8.6-50 MG TAB PO SCH (08:48)
[2019-04-18 10:44] VITALS: BP 129/68; TEMP 98.9
--- NOTE | 2019-04-18 11:31 | CON ---
DATE OF CONSULTATION: 04/16/2019 REASON FOR ADMISSION/CHIEF COMPLAINT: Left hip pain and left hip dislocation. ATTENDING PHYSICIAN: Artem Godoy MD. CONSULTING PHYSICIAN: Shankar Gonsalez MD HISTORY OF PRESENT ILLNESS: Mr. Antonio is an 83-year-old male with past medical history of hypertension, hypothyroidism, rheumatoid arthritis, recent surgery, came because of the hip pain. The patient was found to have dislocated left hip. He was seen on Wednesday. The dislocated hip was put back in place and released, but he came back same day because of re-dislocation. He had a revision arthroplasty of the left hip in January. The patient underwent surgery again. Currently, patient is in not much pain. He is able to ambulate with physical therapy, does not have any shortness of breath. No chest pain. No headache. No dizziness. PAST MEDICAL HISTORY: 1. Hypothyroidism. 2. Rheumatoid arthritis. 3. Coronary artery disease. 4. Chronic pain. 5. Hyperlipidemia. PAST SURGICAL HISTORY: 1. Status post stent placement. 2. Status post CABG. 3. Status post hip replacements. 4. Status post revision arthroplasty, left hip. CURRENT MEDICATIONS: The patient is on: 1. Tylenol p.r.n. 2. Aspirin 81 mg daily. 3. Multivitamin daily. 4. Vitamin D3 2000 units daily. 5. Folic acid 1 mg daily. 6. Prednisone 5 mg daily. 7. Metoprolol 50 mg daily. 8. Levothyroxine 100 mcg daily. 9. Orencia q.30 days. ALLERGIES: MUCINEX, LEVAQUIN, METHOTREXATE, PENICILLINS, SIMVASTATIN. REVIEW OF SYSTEMS: CARDIOVASCULAR: No chest pain. No shortness of breath. RESPIRATORY: No fever or cough. GASTROINTESTINAL: No nausea or vomiting. No abdominal pain. CENTRAL NERVOUS SYSTEM: No headache. No dizziness. PHYSICAL EXAMINATION: GENERAL: The patient is alert, awake, oriented x3. VITAL SIGNS: Temperature 98, pulse 67, respiration 20, blood pressure 116/63. HEENT: Head is normocephalic, atraumatic. Pupils are equal and reactive. Nasopharynx is pink and moist. NECK: Supple. No JVD. LUNGS: Bilateral air entry. No rales, no rhonchi. HEART: S1 and S2, regular. ABDOMEN: Soft. No distention. No tenderness. No organomegaly. Bowel sounds present. RECTAL: Deferred. CENTRAL NERVOUS SYSTEM: No focal deficits. EXTREMITIES: Left hip in dressing LABORATORY DATA: CBC shows WBC 11.6, hemoglobin 14, hematocrit 42, platelets 300. Metabolic panel; sodium 138, potassium 4, chloride 101, CO2 of 28, urea nitrogen 16, creatinine 0.9, glucose 120. ASSESSMENT: 1. Left hip dislocation, status post revision arthroplasty. 2. Hypertension. 3. Hypothyroidism. 4. Coronary artery disease. 5. Rheumatoid arthritis. PLAN: 1. Continue home medications. 2. Labs in the morning. Thank you very much for the consult. I will follow. Job ID: [id number] [facility]
== END 2019-04-18 16:24 | disposition home or self-care (01) | DRG 468 ==
LOC: ERS 17:33 → SURG A 21:24
PROVIDERS: ADMIT Orthopaedic Surgery; ATTEND Orthopaedic Surgery
PROC: 0SRS01Z Replacement of Left Hip Joint, Femoral Surface with Metal Synthetic Substitute, Open Approach (ICD-10-PCS; principal; 2019-04-16)
PROC: 0SPS0JZ Removal of Synthetic Substitute from Left Hip Joint, Femoral Surface, Open Approach (ICD-10-PCS; 2019-04-16)
PROC: 0SPB09Z Removal of Liner from Left Hip Joint, Open Approach (ICD-10-PCS; 2019-04-16)
DX: T84.021A Dislocation of internal left hip prosthesis, initial encounter (principal); E03.9 Hypothyroidism, unspecified; M06.9 Rheumatoid arthritis, unspecified; I25.10 Atherosclerotic heart disease of native coronary artery without angina pectoris; E78.5 Hyperlipidemia, unspecified; S70.02XA Contusion of left hip, initial encounter; G89.29 Other chronic pain; Y83.8 Other surgical procedures as the cause of abnormal reaction of the patient, or of later complication, without mention of misadventure at the time of the procedure; Z95.1 Presence of aortocoronary bypass graft; Z95.5 Presence of coronary angioplasty implant and graft; Z88.0 Allergy status to penicillin; Z88.8 Allergy status to other drugs, medicaments and biological substances
CPT/HCPCS: 27250; 36415; 71045; 72170; 80053; 85025; 85027; 85610; 85730; 87070; 87205; 93005; 96374; 96375; 96376; 99156; C1776; J1580; J1885; J2001; J2270; J2370; J2704; J3010; J3490; J7512

== ENCOUNTER 2019-08-30 20:30 | Inpatient (IN) | payer MEDICARE ==
--- NOTE | 2019-08-30 21:19 | RAD ---
XR Hip Lt 2-3 View History: Deformity Comparison: Hip radiograph August 17, 2019 Findings: Superior displacement of the left hip arthroplasty. Acetabular ring is from the c up. Impression: Superior hip displacement.
[2019-08-30] MEDS ORDERED: Fentanyl 100 MCG/2 ML VIAL ONE (21:34)
--- NOTE | 2019-08-30 21:58 | RAD ---
XR Chest 1 View Portable History: Hip pain. Preop Comparison: Radiograph April 2019 Findings: Elevated left hemidiaphragm. Remainder the lungs are clear. No pneumothorax. Cardiac silhou ette is similar. No acute osseous abnormality. Impression: No acute intrathoracic abnormality.
[2019-08-30 22:01] LABS: PTT 29.8 sec (22.9-36.1); Prothrombin Time 13.6 sec (12.0-14.7)
[2019-08-30 22:04] LABS: #Lymphocytes 1.7 thou/uL (1.20-3.40); #Monocytes 0.6 thou/uL (0.11-0.59); #Neutrophils 4.2 thou/uL (1.40-6.50); %Basophils 0.6 % (0.0-1.0); %Eosinophils 0.6 % (0.0-10.0); %Lymphocytes 25.2 % (21.0-51.0); %Monocytes 9.4 % (0.0-10.0); %Neutrophils 64.1 % (42.0-75.0); Hemoglobin 15.9 g/dL (14.0-18.0); Mean Corpuscular HGB CONC 32.8 g/dL (32.0-36.0); Mean Corpuscular Hemoglobin 30.1 pg (27.0-31.0); Mean Corpuscular Volume 91.8 fL (78.0-98.0); Mean Platelet Volume 7.4 fL (7.4-10.4); Platelet Count 210 thou/uL (130-400); RBC Distribution Width 13.9 % (11.5-14.5); Red Blood Cell (RBC) Count 5.28 mill/uL (4.70-6.10); White Blood Cell (WBC) Count 6.5 thou/uL (4.8-10.8)
[2019-08-30 22:18] LABS: ALT (SGPT) 16 U/L (8-55); AST (SGOT) 26 U/L (5-34); Albumin 4.1 g/dL (3.4-4.8); Alkaline Phosphatase 63 U/L (40-110); Anion Gap 16 mmol/L (10-20); BUN (Urea Nitrogen) 18 mg/dL (8.4-25.7); Bilirubin, Total 0.5 mg/dL (0.2-1.2); Calc. Creatinine Clearance 0 mL/min (70-130); Calcium 9.3 mg/dL (7.8-10.44); Carbon Dioxide 22 mmol/L (23-31); Chloride 105 mmol/L (98-107); Estimated GFR-MDRD 58; Globulin 2.7 g/dL (2.4-3.5); Glucose 114 mg/dL (83-110); Potassium 4.4 mmol/L (3.5-5.1); Protein, Total 6.8 g/dL (5.8-8.1); Sodium 139 mmol/L (136-145)
[2019-08-30] MEDS ORDERED: Ondansetron ODT 4 MG TAB SL PRN (22:48)
[2019-08-30] MEDS ORDERED: Acetaminophen 325 MG TAB PO PRN (22:48)
[2019-08-30] MEDS ORDERED: Ondansetron PF 4 MG/2 ML Vial IVP PRN (22:48)
[2019-08-30] MEDS ORDERED: HYDROcodone/Acetaminophen 5/325 mg Tablet PO PRN (22:48)
[2019-08-30] MEDS: Sodium Chloride 0.9% 1,000 ML IV SCH (23:12)
[2019-08-30] MEDS ORDERED: Metoprolol Tartrate 50 MG TAB PO SCH (23:30)
[2019-08-31 00:29] VITALS: BMI 27.2
[2019-08-31] MEDS: HYDROcodone/Acetaminophen 5/325 mg Tablet PO PRN ×2 (02:56→08:57)
[2019-08-31] MEDS: Levothyroxine Sodium 100 MCG TAB PO SCH (05:38)
[2019-08-31] MEDS ORDERED: Clindamycin/D5W 900 MG in Premix Bag 1 BAG IVPB SCH (07:15)
[2019-08-31] MEDS ORDERED: Gentamicin Sulfate 120 MG in Premix Bag 1 BAG IVPB SCH ×2 (07:49→12:15)
[2019-08-31] MEDS ORDERED: Vancomycin HCl 1.5 GM in Sodium Chloride 0.9% 250 ML 300 ML IVPB SCH (08:00)
[2019-08-31] MEDS ORDERED: Vancomycin 1.5 GRAM/300 ML BAG 1.5 GM in Premix Bag 1 BAG IVPB SCH (08:00)
[2019-08-31] MEDS: predniSONE 5 MG TAB PO SCH (08:54)
[2019-08-31] MEDS: Sodium Chloride 0.9% 1,000 ML IV SCH ×2 (08:54→20:25)
[2019-08-31] MEDS: Magnesium Oxide 250 MG TAB PO SCH (08:54)
[2019-08-31] MEDS: Multivitamin W/ Minerals 1 TAB PO SCH (08:54)
--- NOTE | 2019-08-31 09:49 | HP ---
HISTORY OF PRESENT ILLNESS: Mr. Antonio is an 84-year-old gentleman who I have had the opportunity to treat several times for severe osteolysis and severe muscle and bone loss of the left hip as a result of [id number] failed hip prosthesis. He had a locking constrained liner. He worked out in his yard all day yesterday and felt fine, but then getting out of his recliner dislocated his hip. PAST MEDICAL HISTORY: Positive for hypertension. SURGICAL HISTORY: 1. Left hip surgery. 2. Heart surgery. ALLERGIES: PENICILLIN. REVIEW OF SYSTEMS: He is in good health until this happened. Denies any chest pain, dyspnea, leg swelling, malaise, fevers, chills, or cough. PHYSICAL EXAMINATION: GENERAL: A pleasant gentleman who is in his bed, comfortable at this time. MUSCULOSKELETAL: He has shortened and externally rotated left hip. The skin is intact. There is no drainage from the wound. Neurovascularly intact distally. DIAGNOSTIC STUDIES: Radiographs show displaced dislocated hip. PLAN: Revision of acetabulum with probably another constrained liner. He understands that he continues to be at high risk for dislocation due to his severe loss of muscle and bone. He would like to proceed with surgery. Job ID: [id number]
[2019-08-31] MEDS ORDERED: Labetalol HCl 100 MG/20 ML VIAL SLOW IVP PRN (10:09)
[2019-08-31] MEDS ORDERED: cloNIDine 0.1 MG TAB PO PRN (10:09)
[2019-08-31] MEDS ORDERED: Metoprolol Tartrate 25 MG TAB PO SCH (10:15)
[2019-08-31] MEDS ORDERED: HYDROcodone/Acetaminophen 5/325 mg Tablet PO PRN (17:51)
--- NOTE | 2019-08-31 18:49 | PDOC.HOSPP ---
- Subjective Encounter Date: 08/31/19 Encounter Time: 14:00 Subjective: Patient seen and examined for med mngt. Pain controlled. No CP/SOB. No new complaints. - Objective Vital Signs & Weight: Vital Signs (12 hours) Temp Pulse Resp BP Pulse Ox 08/31/19 15:18 98.2 F 63 16 115/63 96 08/31/19 08:00 97.8 F 65 14 153/70 H 97 Weight Weight 189 lb 11.2 oz I&O: 08/30/19 08/31/19 09/01/19 06:59 06:59 06:59 Intake Total 820 Output Total 725 1500 Balance 95 -1500 Result Diagrams: 08/30/19 21:45 08/30/19 21:45 Radiology Reviewed by me: Yes (CXR - no infiltrate) EKG Reviewed by me: Yes (SR) Hospitalist ROS - Review of Systems Respiratory: denies: cough, dry, shortness of breath, hemoptysis, SOB with excertion, pleuritic pain, sputum, wheezing, other Cardiovascular: denies: chest pain, palpitations, orthopnea, paroxysmal noc. dyspnea, edema, light headedness, other - Medication Medications: Active Medications Generic Name Dose Route Start Last Admin Trade Name Freq PRN Reason Stop Dose Admin Iron/Minerals/Multivitamins 1 tab 08/31/19 09:00 08/31/19 08:54 Theragran M PO 1 tab DAILY ALMAS Administration Levothyroxine Sodium 100 mcg 08/31/19 06:00 08/31/19 05:38 Synthroid PO 100 mcg 0600 ALMAS Administration Magnesium Oxide 500 mg 08/31/19 09:00 08/31/19 08:54 Magnesium Oxide PO 500 mg DAILY ALMAS Administration Prednisone 5 mg 08/31/19 08:00 08/31/19 08:54 Prednisone PO 5 mg QAM-WM ALMAS Administration Sodium Chloride 10 ml 08/31/19 09:00 08/31/19 08:54 Flush - Normal Saline IVF Not Given Q12HR ALMAS - Exam General Appearance: NAD Heart: RRR, no gallops Respiratory: no wheezes, no ronchi Gastrointestinal: non-tender, non-distended, normal bowel sounds Extremities: no cyanosis, no clubbing Neurological: no new deficit Psychiatric: normal affect, A&O x 3 Hosp A/P - Plan DVT proph w/SCDs HTN Rheumatoid arthritis on chronic steroids CAD Chronic pain syndrome HLD Hypothyroidism CKD 2 PLAN: Cont Metoprolol Cont Levothyroxine Cont Prednisone Will follow Full code. DPOA - spouse
[2019-08-31] MEDS: Metoprolol Tartrate 25 MG TAB PO SCH (20:24)
[2019-08-31] MEDS ORDERED: Metoprolol Tartrate 50 MG TAB PO SCH (21:00)
[2019-09-01] MEDS: Levothyroxine Sodium 100 MCG TAB PO SCH (05:22)
[2019-09-01] MEDS: Sodium Chloride 0.9% 1,000 ML IV SCH ×3 (05:25→20:39)
[2019-09-01] MEDS: Metoprolol Tartrate 25 MG TAB PO SCH ×2 (06:00→20:39)
[2019-09-01] MEDS ORDERED: Fentanyl 100 MCG/2 ML VIAL ONE (07:36)
[2019-09-01] MEDS ORDERED: Bupivacaine/Epinephrine 0.25% 30 ML VIAL ONE (07:36)
[2019-09-01] MEDS ORDERED: Tranexamic Acid 1,000 MG/10 ML VIAL ONE (08:35)
[2019-09-01] MEDS ORDERED: PACU-Morphine 4MG/ML VIAL SLOW IVP PRN (09:32)
[2019-09-01] MEDS ORDERED: Promethazine HCl 25 MG/ML VIAL IM PRN ×3 (09:32→10:15)
[2019-09-01] MEDS ORDERED: Promethazine HCl 25 MG/ML VIAL SLOW IVP PRN (09:32)
[2019-09-01] MEDS ORDERED: Acetaminophen 325 MG TAB PO PRN (09:43)
[2019-09-01] MEDS ORDERED: Fentanyl 100 MCG/2 ML VIAL SLOW IVP PRN (09:43)
[2019-09-01] MEDS ORDERED: Zolpidem Tartrate 5 MG TAB PO PRN ×2 (09:43→10:15)
[2019-09-01] MEDS ORDERED: Ondansetron PF 4 MG/2 ML Vial IVP PRN ×2 (09:43→10:15)
[2019-09-01] MEDS ORDERED: diphenhydrAMINE 25 MG CAP PO PRN ×2 (09:43→10:15)
[2019-09-01] MEDS ORDERED: HYDROcodone/Acetaminophen 10/325 mg Tablet PO PRN ×2 (09:43)
[2019-09-01] MEDS ORDERED: ALIROCUMAB 150 MG SQ SCH (09:45)
[2019-09-01] MEDS ORDERED: RISEDRONATE SODIUM 150 MG PO SCH (09:45)
[2019-09-01] MEDS: predniSONE 5 MG TAB PO SCH (10:06)
[2019-09-01] MEDS: Magnesium Oxide 250 MG TAB PO SCH (10:06)
[2019-09-01] MEDS: Multivitamin W/ Minerals 1 TAB PO SCH (10:06)
[2019-09-01] MEDS ORDERED: Hydrocerin (Eucerin) Cream 120 gm Jar TOP PRN (10:15)
[2019-09-01] MEDS ORDERED: Bupivacaine 0.25% 10 ML VIAL EPIDURAL PRN (10:15)
[2019-09-01] MEDS ORDERED: diphenhydrAMINE 50 MG/ML VIAL IM PRN (10:15)
[2019-09-01] MEDS ORDERED: Promethazine HCl 25 MG SUPP PR PRN (10:15)
[2019-09-01] MEDS ORDERED: Ketorolac Tromethamine 30 MG/ML VIAL IVP PRN (10:15)
[2019-09-01] MEDS ORDERED: traMADol HCl 50 MG TAB PO PRN ×2 (10:15)
[2019-09-01] MEDS ORDERED: Naloxone HCl 0.4 mg/ml Vial IVP PRN (10:15)
[2019-09-01] MEDS ORDERED: diphenhydrAMINE 50 MG/ML VIAL IVP PRN (10:15)
[2019-09-01] MEDS ORDERED: Naloxone HCl 0.4 mg/ml Vial IV PRN (10:15)
--- NOTE | 2019-09-01 11:10 | RAD ---
TWO VIEWS LEFT HIP: DATE: 09/01/2019. PROVIDED CLINICAL HISTORY: Postop. FINDINGS: Comparison 08/30/2019. Postoperative changes of left total hip arthroplasty are demonstrated with pres umed revision of the acetabular component. Associated soft tissue gas. No evidence for fracture or other acute osseous abnormality. IMPRESSION: As above. POS: [facility]
[2019-09-01] MEDS ORDERED: Ondansetron PF 4 MG/2 ML Vial ONE (13:29)
[2019-09-01] MEDS ORDERED: Glycopyrrolate 0.2 MG/ML 5 ML SYRINGE ONE (13:29)
[2019-09-01] MEDS ORDERED: PROPOFOL 200 MG/20 ML VIAL ONE (13:29)
[2019-09-01] MEDS ORDERED: Rocuronium Bromide 10 MG/ML (10ML VIAL) ONE (13:29)
[2019-09-01] MEDS ORDERED: EPHEDRINE 25 MG/5 ML SYRINGE ONE (13:29)
[2019-09-01] MEDS ORDERED: PHENYLEPHRINE-NS 100 MCG/ML 10 ML SYRINGE ONE (13:29)
[2019-09-01] MEDS ORDERED: Dexamethasone 20 MG/5 ML VIAL ONE (13:29)
[2019-09-01] MEDS ORDERED: Lidocaine 1% PF 5 ML VIAL ONE (13:29)
[2019-09-01] MEDS ORDERED: Polyethylene Glycol 3350 17 GM Packet PO PRN (14:45)
[2019-09-01] MEDS ORDERED: Cepastat Lozenges 1 LOZ PO PRN (14:45)
--- NOTE | 2019-09-01 14:49 | PDOC.HOSPP ---
- Subjective Encounter Date: 09/01/19 Encounter Time: 14:00 Subjective: Patient seen and examined for med mngt. Pain controlled. No CP or SOB. No new complaints. No overnight events - Objective Vital Signs & Weight: Vital Signs (12 hours) Temp Pulse Resp BP BP Pulse Ox 09/01/19 03:56 166/51 H 09/01/19 03:43 98.0 F 61 17 166/51 H 96 Weight Weight 189 lb 11.2 oz I&O: 08/31/19 09/01/19 09/02/19 06:59 06:59 06:59 Intake Total 820 1070 Output Total 729 1325 Balance 95 -1455 Result Diagrams: 08/30/19 21:45 08/30/19 21:45 Hospitalist ROS - Review of Systems Respiratory: denies: cough, dry, shortness of breath, hemoptysis, SOB with excertion, pleuritic pain, sputum, wheezing, other Cardiovascular: denies: chest pain, palpitations, orthopnea, paroxysmal noc. dyspnea, edema, light headedness, other - Medication Medications: Active Medications Generic Name Dose Route Start Last Admin Trade Name Freq PRN Reason Stop Dose Admin Clonidine 0.1 mg 08/31/19 10:09 09/01/19 03:56 Catapres PO 0.1 mg Q4H PRN Administration SBP GREATER THAN 160 Sodium Chloride 10 ml 08/31/19 09:00 09/01/19 10:06 Flush - Normal Saline IVF Not Given Q12HR ALMAS - Exam General Appearance: NAD Neck: supple, no JVD Heart: RRR, no gallops Respiratory: no wheezes, no ronchi Gastrointestinal: soft, non-tender, normal bowel sounds Extremities: no cyanosis Neurological: no new deficit Hosp A/P - Plan DVT proph w/SCDs HTN Rheumatoid arthritis on chronic steroids CAD Chronic pain syndrome HLD Hypothyroidism CKD 2 PLAN: Change Metoprolol to 25 mg BID Cont Levothyroxine Cont Prednisone Will follow
[2019-09-01] MEDS ORDERED: Vancomycin 1.5 GRAM/300 ML BAG 1.5 GM in Premix Bag 1 BAG IVPB SCH (20:00)
[2019-09-01] MEDS: Aspirin 81 mg Enteric Coated Tablet PO SCH (20:39)
[2019-09-01] MEDS ORDERED: Metoprolol Tartrate 50 MG TAB PO SCH (21:00)
[2019-09-02] MEDS: fentaNYL Citrate/PF 500 MCG, Bupivacaine 10 ML in Sodium Chloride 0.9% 80 ML EPIDURAL SCH ×2 (04:06→18:11)
[2019-09-02] MEDS: Sodium Chloride 0.9% 1,000 ML IV SCH ×2 (04:45→14:45)
[2019-09-02 05:46] LABS: Hemoglobin 13.4 g/dL (14.0-18.0); Mean Corpuscular HGB CONC 32.4 g/dL (32.0-36.0); Mean Corpuscular Hemoglobin 29.7 pg (27.0-31.0); Mean Corpuscular Volume 91.6 fL (78.0-98.0); Mean Platelet Volume 7.9 fL (7.4-10.4); Platelet Count 206 thou/uL (130-400); RBC Distribution Width 13.9 % (11.5-14.5); White Blood Cell (WBC) Count 12.5 thou/uL (4.8-10.8)
[2019-09-02] MEDS: Levothyroxine Sodium 100 MCG TAB PO SCH (06:53)
--- NOTE | 2019-09-02 07:13 | OP ---
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 PROCEDURE PERFORMED: Left revision total hip arthroplasty using Debra size 28 x +4 femoral head with a 48-mm polyethylene, outside diameter head, a 62-mm tritanium cup, and an MDM liner. Screws were used to insert the acetabulum, and allograft bone graft was used. ASSISTANTS: Spencer Rockwell PA-C BLOOD LOSS: About 300. SPECIMENS: None. DRAINS: None. COMPLICATIONS: None. DESCRIPTION OF PROCEDURE: The patient was taken to the operating room where general anesthesia was induced. The patient was placed in right lateral decubitus position. Left leg was prepped and draped in sterile fashion. I opened up the old scar. Dissection was carried down through the IT band. Really, no abductors left. 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 I removed the femoral head components. I exposed the acetabulum circumferentially and removed this using Innomed cup extractor set. The cup was well ingrown. Irrigation was performed. The bone was quite deficient. I used allograft femoral head to pack the acetabulum. I placed a 62-mm tritanium cup. I was able to get 3 good screws in the bone. This gave good stability. I then trialed the femur with implants as described. This gave good stability throughout the range of motion without any signs of dislocation. Trials were removed. Irrigation performed. Permanent implants were packed into place. The hip was reduced. IT band was repaired with #2 Vicryl and #2 Quill. Subcu closed with 0 Quill. Skin was closed with Prolene. Sterile dressings applied. Job ID: [id number]
[2019-09-02] MEDS ORDERED: predniSONE 5 MG TAB PO SCH ×2 (08:00→17:00)
[2019-09-02] MEDS ORDERED: Aspirin 325 MG TAB PO SCH (09:00)
[2019-09-02] MEDS ORDERED: Non-Formulary Item 1 EACH (Multivit-Min/Fa/Lycopen/Lutein [Centrum Silver Tablet] 1 EACH) PO SCH (09:00)
[2019-09-02] MEDS: Ferrous Gluconate 324 MG TAB PO SCH ×2 (09:34→18:11)
[2019-09-02] MEDS: Multivitamin W/ Minerals 1 TAB PO SCH (09:34)
[2019-09-02] MEDS: Magnesium Oxide 250 MG TAB PO SCH (09:34)
[2019-09-02] MEDS: Aspirin 81 mg Enteric Coated Tablet PO SCH ×2 (09:34→22:00)
[2019-09-02] MEDS: Metoprolol Tartrate 25 MG TAB PO SCH ×2 (09:35→22:00)
[2019-09-02] MEDS: Senokot S 8.6-50 MG TAB PO SCH ×2 (09:35→22:00)
--- NOTE | 2019-09-02 09:43 | PRG ---
DATE OF SERVICE: 09/02/2019 SUBJECTIVE: The patient is doing well after his hip replacement/revision. He was up walking with PT yesterday and the hip feels okay. His p.o. intake is good. He is in great spirits. No acute distress. OBJECTIVE: VITAL SIGNS: Stable. No fever. GENERAL: Speech clear and fluent, oriented. EXTREMITIES: Dressing to left lower extremity is dry and intact currently. He is moving that left lower extremity well. DP and PT pulses are intact as are the sensations. ASSESSMENT: Stable. PLAN: PT, OT, antibiotics, p.o. intake to increase his energy stores, and continue walking. The patient is doing well. He might be able to get out of here tomorrow and we discussed that and we will see how he does. Job ID: [id number] MTDD
[2019-09-03] MEDS: Sodium Chloride 0.9% 1,000 ML IV SCH ×3 (02:08→20:14)
[2019-09-03 05:25] LABS: Hemoglobin 12.1 g/dL (14.0-18.0); Mean Corpuscular HGB CONC 33.8 g/dL (32.0-36.0); Mean Corpuscular Hemoglobin 30.9 pg (27.0-31.0); Mean Corpuscular Volume 91.5 fL (78.0-98.0); Mean Platelet Volume 8.2 fL (7.4-10.4); Platelet Count 177 thou/uL (130-400); RBC Distribution Width 13.9 % (11.5-14.5); Red Blood Cell (RBC) Count 3.93 mill/uL (4.70-6.10); White Blood Cell (WBC) Count 11.3 thou/uL (4.8-10.8)
[2019-09-03] MEDS: Levothyroxine Sodium 100 MCG TAB PO SCH (06:20)
[2019-09-03] MEDS: Senokot S 8.6-50 MG TAB PO SCH ×2 (09:18→20:12)
[2019-09-03] MEDS: predniSONE 5 MG TAB PO SCH (09:19)
[2019-09-03] MEDS: Multivitamin W/ Minerals 1 TAB PO SCH (09:19)
[2019-09-03] MEDS: Magnesium Oxide 250 MG TAB PO SCH (09:19)
[2019-09-03] MEDS: Aspirin 81 mg Enteric Coated Tablet PO SCH ×2 (09:19→20:12)
[2019-09-03] MEDS: Metoprolol Tartrate 25 MG TAB PO SCH ×2 (09:19→20:12)
[2019-09-03] MEDS: Ferrous Gluconate 324 MG TAB PO SCH ×2 (09:19→17:03)
[2019-09-03] MEDS: fentaNYL Citrate/PF 500 MCG, Bupivacaine 10 ML in Sodium Chloride 0.9% 80 ML EPIDURAL SCH (09:20)
--- NOTE | 2019-09-03 14:43 | PDOC.HOSPP ---
- Subjective Encounter Date: 09/03/19 Encounter Time: 14:00 Subjective: Patient seen and examined for med mngt. Some gen abd pain. Had BM yesterday. Difficulty swallowing. No other complaints. No overnight events - Objective Vital Signs & Weight: Vital Signs (12 hours) Temp Pulse Resp BP Pulse Ox 09/03/19 11:38 97.6 F 72 18 118/68 95 09/03/19 07:36 99.0 F 67 18 144/67 H 94 L 09/03/19 05:06 98.9 F 68 16 136/65 95 Weight Weight 189 lb 11.2 oz I&O: 09/02/19 09/03/19 09/04/19 06:59 06:59 06:59 Intake Total 1780 1680 Output Total 2900 1350 Balance -1120 330 Result Diagrams: 09/03/19 04:56 08/30/19 21:45 Radiology Reviewed by me: Yes (KUB - neg) Hospitalist ROS - Review of Systems Respiratory: denies: cough, dry, shortness of breath, hemoptysis, SOB with excertion, pleuritic pain, sputum, wheezing, other Cardiovascular: denies: chest pain, palpitations, orthopnea, paroxysmal noc. dyspnea, edema, light headedness, other - Medication Medications: Active Medications Generic Name Dose Route Start Last Admin Trade Name Freq PRN Reason Stop Dose Admin Aspirin 81 mg 09/01/19 21:00 09/03/19 09:19 Ecotrin PO 81 mg BID ALMAS Administration Clonidine 0.1 mg 08/31/19 10:09 09/01/19 03:56 Catapres PO 0.1 mg Q4H PRN Administration SBP GREATER THAN 160 Ferrous Gluconate 324 mg 09/02/19 08:00 09/03/19 09:19 Fergon PO 324 mg BID-WM ALMAS Administration Sodium Chloride 1,000 mls @ 100 mls/hr 09/01/19 09:45 09/03/19 11:20 Normal Saline 0.9% IV Not Given .Q10H ALMAS Fentanyl Citrate 500 mcg/ 100 mls @ 6 mls/hr 09/01/19 10:15 09/03/19 09:20 Bupivacaine HCl 10 ml/ Sodium EPIDURAL 100 mls Chloride INF ALMAS Administration Iron/Minerals/Multivitamins 1 tab 09/02/19 09:00 09/03/19 09:19 Theragran M PO 1 tab DAILY ALMAS Administration Levothyroxine Sodium 100 mcg 09/02/19 06:00 09/03/19 06:20 Synthroid PO 100 mcg 0600 ALMAS Administration Magnesium Oxide 500 mg 09/02/19 09:00 09/03/19 09:19 Magnesium Oxide PO 500 mg DAILY ALMAS Administration Metoprolol Tartrate 25 mg 09/01/19 21:00 09/03/19 09:19 Lopressor PO 25 mg BID ALMAS Administration Prednisone 5 mg 09/03/19 08:00 09/03/19 09:19 Prednisone PO 5 mg QAM-WM ALMAS Administration Senna/Docusate Sodium 2 tab 09/02/19 09:00 09/03/19 09:18 Senokot S PO 2 tab BID ALMAS Administration Sodium Chloride 10 ml 08/31/19 09:00 09/03/19 09:20 Flush - Normal Saline IVF 10 ml Q12HR ALMAS Administration - Exam General Appearance: NAD Heart: RRR, no gallops Respiratory: no wheezes, no ronchi Gastrointestinal: non-tender, normal bowel sounds, no guarding, no rigidity Gastrointestinal - other findings: mild gen tenderness Extremities: no cyanosis Neurological: no new deficit Hosp A/P - Plan DVT proph w/SCDs New mild gen abd pain Swallow dysfunction HTN Rheumatoid arthritis on chronic steroids CAD Chronic pain syndrome HLD Hypothyroidism CKD 2 PLAN: Abd XR Consult COLLECTIONS CLERK Cont Metoprolol, Levothyroxine and Prednisone Will follow Update: KUB reviewed COLLECTIONS CLERK recommended GI evaluation for possible esophageal dysmotility prob as outpt. Diet modified. Will sign off.
--- NOTE | 2019-09-03 16:23 | RAD ---
TWO VIEWS ABDOMEN: Date: 09-03-2019 Provided Clinical History: Abdominal pain. FINDINGS: Comparison 06-21-08. Elevation of the left hemidiaphragm persists. The abdominal bowel gas pattern is nonspecific. There i s no evidence for pneumoperitoneum. No radiographically apparent urinary tract calculi. Left hip arth roplasty changes. The osseous structures demonstrate no concerning findings. Surgical clips overlie b oth the right and left upper quadrants. IMPRESSION: Nonspecific bowel gas pattern. POS: SYED
[2019-09-04] MEDS: fentaNYL Citrate/PF 500 MCG, Bupivacaine 10 ML in Sodium Chloride 0.9% 80 ML EPIDURAL SCH (03:37)
[2019-09-04 05:23] LABS: Hemoglobin 12.3 g/dL (14.0-18.0); Mean Corpuscular HGB CONC 32.3 g/dL (32.0-36.0); Mean Corpuscular Hemoglobin 29.5 pg (27.0-31.0); Mean Corpuscular Volume 91.4 fL (78.0-98.0); Mean Platelet Volume 7.8 fL (7.4-10.4); Platelet Count 209 thou/uL (130-400); RBC Distribution Width 13.9 % (11.5-14.5); Red Blood Cell (RBC) Count 4.16 mill/uL (4.70-6.10); White Blood Cell (WBC) Count 11.7 thou/uL (4.8-10.8)
[2019-09-04] MEDS: Levothyroxine Sodium 100 MCG TAB PO SCH (06:03)
[2019-09-04] MEDS: Sodium Chloride 0.9% 1,000 ML IV SCH (06:32)
[2019-09-04] MEDS: Ferrous Gluconate 324 MG TAB PO SCH (08:46)
[2019-09-04] MEDS: predniSONE 5 MG TAB PO SCH (08:46)
[2019-09-04] MEDS: Aspirin 81 mg Enteric Coated Tablet PO SCH (08:47)
[2019-09-04] MEDS: Magnesium Oxide 250 MG TAB PO SCH (08:47)
[2019-09-04] MEDS: Multivitamin W/ Minerals 1 TAB PO SCH (08:47)
[2019-09-04] MEDS: Metoprolol Tartrate 25 MG TAB PO SCH (08:48)
[2019-09-04] MEDS: Senokot S 8.6-50 MG TAB PO SCH (08:48)
[2019-09-04 11:34] VITALS: BP 129/58; TEMP 97.7
--- NOTE | 2019-09-05 12:11 | DIS ---
DATE OF ADMISSION: 08/30/2019 DATE OF DISCHARGE: 09/04/2019 This is Spencer Rockwell PA-C dictating a report for Artem Godoy MD. 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 PROCEDURE: The patient underwent a left revision total hip arthroplasty using Debra size 28 x +4 femoral head with a 48-mm polyethylene, outside diameter head, a 62-mm Tritanium cup, and an MDM liner. Screws were used to insert the acetabulum, and allograft bone graft was used. HOSPITAL STAY: The patient did quite well initially a lot of pain, lot of stiffness, but he was always tearful through his hospital stay. He did not have any other postoperative complications and he remained stable throughout his hospital stay. By 09/04/2019, the patient was ready to discharge home. DISCHARGE CONDITION: Good/stable. DISPOSITION: Home with family. Followup would be in 2 to 4 weeks or sooner if there are problems and/or concerns. Discharge medications given with usage instructions. Job ID: [id number]
[2019-09-06] MEDS ORDERED: PRALUENT SC SCH (09:00)
== END 2019-09-04 14:35 | disposition home or self-care (01) | DRG 468 ==
LOC: ERS 20:30 → SURG B 21:33
PROVIDERS: ADMIT Orthopaedic Surgery; ATTEND Orthopaedic Surgery
PROC: 0SWBXJZ Revision of Synthetic Substitute in Left Hip Joint, External Approach (ICD-10-PCS; 2019-08-30)
PROC: 0SRB02A Replacement of Left Hip Joint with Metal on Polyethylene Synthetic Substitute, Uncemented, Open Approach (ICD-10-PCS; principal; 2019-09-01)
PROC: 0SPB0JZ Removal of Synthetic Substitute from Left Hip Joint, Open Approach (ICD-10-PCS; 2019-09-01)
PROC: 0SUE09Z Supplement Left Hip Joint, Acetabular Surface with Liner, Open Approach (ICD-10-PCS; 2019-09-01)
DX: T84.021A Dislocation of internal left hip prosthesis, initial encounter (principal); I25.10 Atherosclerotic heart disease of native coronary artery without angina pectoris; M06.9 Rheumatoid arthritis, unspecified; E03.9 Hypothyroidism, unspecified; E78.5 Hyperlipidemia, unspecified; M35.3 Polymyalgia rheumatica; G89.4 Chronic pain syndrome; N18.2 Chronic kidney disease, stage 2 (mild); I12.9 Hypertensive chronic kidney disease with stage 1 through stage 4 chronic kidney disease, or unspecified chronic kidney disease; Y83.1 Surgical operation with implant of artificial internal device as the cause of abnormal reaction of the patient, or of later complication, without mention of misadventure at the time of the procedure; R10.84 Generalized abdominal pain; R13.10 Dysphagia, unspecified; I25.2 Old myocardial infarction; Z95.1 Presence of aortocoronary bypass graft; Z95.5 Presence of coronary angioplasty implant and graft; Z79.899 Other long term (current) drug therapy; Z79.890 Hormone replacement therapy; Z79.52 Long term (current) use of systemic steroids; Z79.82 Long term (current) use of aspirin
CPT/HCPCS: 36415; 71045; 74019; 80053; 85025; 85027; 85610; 85730; 93005; 96374; C1713; C1776; J1100; J2001; J2405; J2704; J3010; J3370; J3490; J7512

== ENCOUNTER 2019-09-10 15:07 | Emergency (ER) | payer MEDICARE | END 2019-09-10 15:40 | disposition home or self-care (01) | LOC: ERS 15:07 | DX: M96.840 Postprocedural hematoma of a musculoskeletal structure following a musculoskeletal system procedure (principal); I25.2 Old myocardial infarction; I25.10 Atherosclerotic heart disease of native coronary artery without angina pectoris; E03.9 Hypothyroidism, unspecified; E78.5 Hyperlipidemia, unspecified; I10 Essential (primary) hypertension; Z79.899 Other long term (current) drug therapy | CPT/HCPCS: 99283 ==

== ENCOUNTER 2020-02-07 12:25 | Outpatient (CLI) | payer MEDICARE ==
--- NOTE | 2020-02-07 13:05 | RAD ---
Chest 2 views: 02/07/2020 COMPARISON: 08/30/2019 HISTORY: Shortness of breath, dyspnea FINDINGS: Midline sternotomy wires and mediastinal clips are present. There is elevation of the left hemidiaphragm. The right lung appears clear. There is stable blunting of the left costophrenic angle with mild increased density within the left base abutting the elevated left hemidiaphragm. Ther e are postoperative clips in the medial left lung base and left perihilar region. IMPRESSION: Elevated left hemidiaphragm with mild stable nonspecific density within the left base adj acent to the left hemidiaphragm which may signify volume loss, mild pleural thickening, or minimal pleural fluid. No significant interval change. No evidence for an acute abnormality.
== END 2020-02-07 12:26 | disposition home or self-care (01) ==
LOC: BICRAD 12:25
PROVIDERS: ATTEND Internal Medicine Pulmonary Disease
DX: R06.00 Dyspnea, unspecified (principal); J98.6 Disorders of diaphragm
CPT/HCPCS: 71046

== ENCOUNTER 2020-05-14 10:21 | Outpatient (CLI) | payer MEDICARE | END 2020-05-14 10:22 | disposition home or self-care (01) | LOC: BICRAD 10:21 | PROVIDERS: ATTEND Nurse Practitioner Family | DX: R09.89 Other specified symptoms and signs involving the circulatory and respiratory systems (principal) | CPT/HCPCS: 71046 ==

== ENCOUNTER 2022-05-14 13:09 | Outpatient (CLI) | payer MEDICARE | END 2022-05-14 13:10 | disposition home or self-care (01) | LOC: RAD 13:09 | PROVIDERS: ATTEND Internal Medicine Critical Care Medicine | DX: R06.00 Dyspnea, unspecified (principal) | CPT/HCPCS: 71046 ==

== ENCOUNTER 2022-05-29 13:27 | Inpatient (IN) | payer MEDICARE ==
[2022-05-29 13:57] LABS: #Eosinphils 0.2 thou/uL (0.0-0.7); #Lymphocytes 4.7 thou/uL (1.20-3.40); #Monocytes 1.2 thou/uL (0.11-0.59); #Neutrophils 13.4 thou/uL (1.40-6.50); %Basophils 0.2 % (0.0-1.0); %Lymphocytes 24.2 % (21.0-51.0); %Monocytes 6.3 % (0.0-10.0); %Neutrophils 68.3 % (42.0-75.0); Hemoglobin 16.9 g/dL (14.0-18.0); Mean Corpuscular HGB CONC 33.5 g/dL (32.0-36.0); Mean Corpuscular Hemoglobin 31.2 pg (27.0-31.0); Mean Corpuscular Volume 93.1 fl (78.0-98.0); Mean Platelet Volume 7.6 fL (7.4-10.4); Platelet Count 222 10x3/uL (130-400); RBC Distribution Width 12.7 % (11.5-14.5); White Blood Cell (WBC) Count 19.5 10x3/uL (4.8-10.8)
[2022-05-29] MEDS ORDERED: Albuterol 200 PUFF (6.7GM INHALER) ONE (14:10)
[2022-05-29] MEDS ORDERED: Cefepime 2 GM VIAL ONE (14:18)
[2022-05-29] MEDS ORDERED: Ondansetron PF 4 MG/2 ML Vial ONE ×2 (14:19→14:31)
[2022-05-29 14:48] LABS: Bilirubin Negative (Negative); Blood, Urine Negative (Negative); Clarity Turbid (Clear); Glucose, Urine (Dipstick) Normal (Negative); Ketone, Urine Trace mg/dL (Negative); Leukocyte Negative Leu/uL (Negative); Nitrite Negative (Negative); Protein, Urine (Dipstick) Negative (Neg-Trace); Specific Gravity, Urine 1.018 (1.002-1.036); Urobilinogen Normal mg/dL (Less than 2)
[2022-05-29 14:59] LABS: SARS-CoV-2 NAA Rapid Test Not Detected (NotDetected)
[2022-05-29] MEDS ORDERED: Vancomycin 1.5 GRAM/300 ML BAG 1.5 GM in Premix Bag 1 BAG IVPB SCH (15:00)
[2022-05-29] MEDS ORDERED: Acetaminophen 500 MG TAB ONE (15:10)
[2022-05-29 15:51] LABS: ALT (SGPT) 23 U/L (8-55); AST (SGOT) 38 U/L (5-34); Albumin 4.4 g/dL (3.4-4.8); Alkaline Phosphatase 62 U/L (40-110); Anion Gap 18 mmol/L (10-20); BUN (Urea Nitrogen) 18 mg/dL (8.4-25.7); Bilirubin, Total 0.8 mg/dL (0.2-1.2); CK (CPK) 163 U/L (30-200); Calc. Creatinine Clearance 0 mL/min (70-130); Calcium 9.7 mg/dL (7.8-10.44); Carbon Dioxide 28 mmol/L (23-31); Chloride 99 mmol/L (98-107); Estimated GFR 61; Globulin 3.1 g/dL (2.4-3.5); Glucose 128 mg/dL (83-110); Lipase 34 U/L (8-78); Potassium 4.3 mmol/L (3.5-5.1); Protein, Total 7.5 g/dL (5.8-8.1); Sodium 141 mmol/L (136-145)
[2022-05-29] MEDS ORDERED: Lidocaine 1% (PF) 30 ML VIAL ONE (16:00)
[2022-05-29] MEDS ORDERED: Nitroglycerin 100MG/250ML BOT 250 ML ONE (16:00)
[2022-05-29] MEDS ORDERED: Adenosine 6 MG/2 ML VIAL ONE (16:00)
[2022-05-29] MEDS ORDERED: Heparin 10,000 UNITS/ 10 ML VIAL ONE (16:00)
[2022-05-29] MEDS ORDERED: Verapamil 5 MG/2 ML VIAL ONE (16:00)
[2022-05-29] MEDS ORDERED: Aspirin Chewable 81 MG TAB ONE (16:05)
[2022-05-29] MEDS ORDERED: NOREPINEPHRINE 8 MG/250 ML-D5W 0 ML ONE (16:44)
[2022-05-29] MEDS ORDERED: Ketorolac Tromethamine 30 MG/ML VIAL ONE (16:51)
[2022-05-29] MEDS ORDERED: Acetaminophen 325 MG/10.15 ML UDCUP PO PRN (17:45)
[2022-05-29] MEDS ORDERED: Ipratropium/Albuterol 3 ML NEB NEB PRN (17:45)
[2022-05-29] MEDS ORDERED: HYDROcodone/Acetaminophen 5/325 mg Tablet ONE (17:47)
[2022-05-29] MEDS ORDERED: Acetaminophen 325 MG TAB PO PRN (17:48)
[2022-05-29] MEDS: HYDROcodone/Acetaminophen 5/325 mg Tablet PO PRN (17:55)
[2022-05-29 17:58] LABS: Lactic Acid 1.8 mmol/L (0.5-2.2)
[2022-05-29] MEDS ORDERED: VANCOMYCIN IVPB PRN (18:22)
[2022-05-29 18:30] LABS: Troponin I 0.277 ng/mL (< 0.028)
[2022-05-29] MEDS ORDERED: metroNIDAZOLE 500 MG in Premix Bag 1 BAG IVPB SCH (20:00)
[2022-05-29] MEDS ORDERED: metroNIDAZOLE 500 MG/100 ML BAG ONE (20:56)
[2022-05-29] MEDS ORDERED: Cefepime 2 GM in Sodium Chloride 0.9% 100 ML IVPB SCH (21:00)
[2022-05-29] MEDS ORDERED: Vancomycin HCl 1.5 GM in Sodium Chloride 0.9% 250 ML 300 ML IVPB SCH (21:00)
[2022-05-29 21:31] VITALS: BMI 27.1
[2022-05-29] MEDS ORDERED: predniSONE 20 MG TAB PO SCH (21:45)
[2022-05-29] MEDS: Doxycycline 100 MG in Sodium Chloride 0.9% 100 ML IVPB SCH (22:23)
[2022-05-29] MEDS ORDERED: Electrolyte Replacement Protocol 1 EACH FS SCH (22:32)
[2022-05-29 22:33] LABS: Magnesium 1.9 mg/dL (1.6-2.6)
[2022-05-29] MEDS: Aztreonam 2 GM in Sodium Chloride 0.9% 100 ML IVPB SCH (22:33)
[2022-05-29] MEDS: Benzonatate 100 MG CAP PO PRN (22:34)
[2022-05-29 22:44] LABS: Troponin I 8.687 ng/mL (< 0.028)
[2022-05-30] MEDS ORDERED: Magnesium 2 GM/50 ML(in water) 2 GM in Premix Bag 1 BAG IVPB SCH (03:15)
[2022-05-30 04:36] LABS: ALT (SGPT) 30 U/L (8-55); AST (SGOT) 174 U/L (5-34); Albumin 3.5 g/dL (3.4-4.8); Alkaline Phosphatase 43 U/L (40-110); Anion Gap 12 mmol/L (10-20); BUN (Urea Nitrogen) 22 mg/dL (8.4-25.7); Bilirubin, Total 0.9 mg/dL (0.2-1.2); Calc. Creatinine Clearance 52 mL/min (70-130); Calcium 8.3 mg/dL (7.8-10.44); Carbon Dioxide 23 mmol/L (23-31); Chloride 106 mmol/L (98-107); Estimated GFR 56; Globulin 2.5 g/dL (2.4-3.5); Glucose 132 mg/dL (83-110); Potassium 4.4 mmol/L (3.5-5.1); Sodium 137 mmol/L (136-145)
[2022-05-30 04:36] LABS: Legionella Urinary Ag Negative (Negative); Strep pneumo Urine Ag NEGATIVE (NEGATIVE)
[2022-05-30 05:08] LABS: Band 23 % (5-11); Hemoglobin 14.9 g/dL (14.0-18.0); Lymphocytes 7 % (21-51); MDiff Complete? YES; Mean Corpuscular HGB CONC 32.2 g/dL (32.0-36.0); Mean Corpuscular Hemoglobin 30.2 pg (27.0-31.0); Mean Corpuscular Volume 93.7 fl (78.0-98.0); Mean Platelet Volume 7.9 fL (7.4-10.4); Monocytes 1 % (0-10); Neutrophil 69 % (42-75); Platelet Count 165 10x3/uL (130-400); Platelet Morphology Comment Appears Adequate; RBC Distribution Width 12.7 % (11.5-14.5); RBC Morphology Normal; Red Blood Cell (RBC) Count 4.93 mill/uL (4.70-6.10); White Blood Cell (WBC) Count 26.7 10x3/uL (4.8-10.8)
[2022-05-30 06:09] LABS: Troponin I 26.634 ng/mL (< 0.028)
[2022-05-30] MEDS: Doxycycline 100 MG in Sodium Chloride 0.9% 100 ML IVPB SCH ×2 (08:59→21:47)
[2022-05-30] MEDS: Aztreonam 2 GM in Sodium Chloride 0.9% 100 ML IVPB SCH (10:34)
[2022-05-30] MEDS ORDERED: predniSONE 20 MG TAB PO SCH (11:00)
[2022-05-30] MEDS: Aztreonam 1 GM in Sodium Chloride 0.9% 100 ML IVPB SCH (17:15)
[2022-05-30] MEDS: VANCOMYCIN 1.25 GM/250 ML BAG 1.25 GM in Premix Bag 1 BAG IVPB SCH (17:18)
[2022-05-30] MEDS: Benzonatate 100 MG CAP PO PRN (21:47)
[2022-05-31] MEDS: Aztreonam 1 GM in Sodium Chloride 0.9% 100 ML IVPB SCH ×3 (01:11→17:22)
[2022-05-31 04:07] LABS: #Lymphocytes 2.2 thou/uL (1.20-3.40); #Neutrophils 17.1 thou/uL (1.40-6.50); %Eosinophils 0.1 % (0.0-10.0); %Lymphocytes 10.8 % (21.0-51.0); %Monocytes 5.1 % (0.0-10.0); Hemoglobin 15.4 g/dL (14.0-18.0); Mean Corpuscular HGB CONC 34.2 g/dL (32.0-36.0); Mean Corpuscular Hemoglobin 32.1 pg (27.0-31.0); Mean Corpuscular Volume 93.9 fl (78.0-98.0); Mean Platelet Volume 8.1 fL (7.4-10.4); Platelet Count 165 10x3/uL (130-400); RBC Distribution Width 12.7 % (11.5-14.5); Red Blood Cell (RBC) Count 4.78 mill/uL (4.70-6.10); White Blood Cell (WBC) Count 20.3 10x3/uL (4.8-10.8)
[2022-05-31 04:27] LABS: ALT (SGPT) 41 U/L (8-55); AST (SGOT) 197 U/L (5-34); Alkaline Phosphatase 41 U/L (40-110); Anion Gap 9 mmol/L (10-20); BUN (Urea Nitrogen) 27 mg/dL (8.4-25.7); Bilirubin, Total 0.3 mg/dL (0.2-1.2); Calc. Creatinine Clearance 64 mL/min (70-130); Calcium 8.3 mg/dL (7.8-10.44); Carbon Dioxide 24 mmol/L (23-31); Chloride 108 mmol/L (98-107); Estimated GFR 72; Globulin 2.6 g/dL (2.4-3.5); Glucose 126 mg/dL (83-110); Magnesium 2.5 mg/dL (1.6-2.6); Potassium 4.3 mmol/L (3.5-5.1); Protein, Total 5.6 g/dL (5.8-8.1); Sodium 137 mmol/L (136-145)
[2022-05-31] MEDS: Levothyroxine Sodium 100 MCG TAB PO SCH (05:12)
[2022-05-31] MEDS ORDERED: Nitroglycerin 2% Ointment 1 INCH/1 GM Packet TOP SCH (05:45)
[2022-05-31] MEDS: Morphine 2 MG/ML VIAL SLOW IVP PRN (06:04)
[2022-05-31 06:25] LABS: Critical Call Chem Troponin I RESULT DECREASING; Troponin I 21.039 ng/mL (< 0.028)
[2022-05-31] MEDS: predniSONE 20 MG TAB PO SCH (09:09)
[2022-05-31] MEDS: Aspirin 81 mg Enteric Coated Tablet PO SCH (09:09)
[2022-05-31] MEDS: Doxycycline 100 MG in Sodium Chloride 0.9% 100 ML IVPB SCH ×2 (09:09→21:18)
[2022-05-31] MEDS: Magnesium Oxide 400 MG TAB PO SCH (09:10)
[2022-05-31] MEDS: Amiodarone 450 MG, Admixture Fee 1 EACH in Dextrose 5% in Water 250 ML IVPB SCH ×2 (14:24→21:19)
[2022-05-31 15:43] LABS: Vancomycin, Trough 8.7 ug/mL
[2022-05-31] MEDS ORDERED: VANCOMYCIN 1.75 GM/500 ML BAG 1.75 GM in Premix Bag 1 BAG IVPB SCH (17:00)
[2022-05-31] MEDS: VANCOMYCIN 1.25 GM/250 ML BAG 1.25 GM in Premix Bag 1 BAG IVPB SCH (17:17)
[2022-06-01] MEDS: Aztreonam 1 GM in Sodium Chloride 0.9% 100 ML IVPB SCH ×3 (02:51→17:27)
[2022-06-01 04:16] LABS: #Lymphocytes 2.7 thou/uL (1.20-3.40); #Monocytes 1.5 thou/uL (0.11-0.59); %Basophils 0.1 % (0.0-1.0); %Eosinophils 0.1 % (0.0-10.0); %Monocytes 6.8 % (0.0-10.0); %Neutrophils 80.9 % (42.0-75.0); Mean Corpuscular HGB CONC 32.5 g/dL (32.0-36.0); Mean Corpuscular Hemoglobin 31.1 pg (27.0-31.0); Mean Corpuscular Volume 95.7 fl (78.0-98.0); Mean Platelet Volume 8.4 fL (7.4-10.4); Platelet Count 222 10x3/uL (130-400); RBC Distribution Width 12.9 % (11.5-14.5); Red Blood Cell (RBC) Count 5.15 mill/uL (4.70-6.10); White Blood Cell (WBC) Count 22.3 10x3/uL (4.8-10.8)
[2022-06-01 04:34] LABS: ALT (SGPT) 41 U/L (8-55); AST (SGOT) 111 U/L (5-34); Albumin 3.7 g/dL (3.4-4.8); Alkaline Phosphatase 62 U/L (40-110); Anion Gap 14 mmol/L (10-20); BUN (Urea Nitrogen) 24 mg/dL (8.4-25.7); Bilirubin, Total 0.7 mg/dL (0.2-1.2); Calc. Creatinine Clearance 68 mL/min (70-130); Calcium 8.5 mg/dL (7.8-10.44); Carbon Dioxide 19 mmol/L (23-31); Chloride 106 mmol/L (98-107); Estimated GFR 77; Globulin 3.2 g/dL (2.4-3.5); Glucose 125 mg/dL (83-110); Magnesium 2.2 mg/dL (1.6-2.6); Potassium 4.7 mmol/L (3.5-5.1); Protein, Total 6.9 g/dL (5.8-8.1); Sodium 134 mmol/L (136-145)
[2022-06-01] MEDS: Morphine 2 MG/ML VIAL SLOW IVP PRN ×2 (05:54→10:38)
[2022-06-01] MEDS: Levothyroxine Sodium 100 MCG TAB PO SCH (05:56)
[2022-06-01] MEDS: predniSONE 20 MG TAB PO SCH (08:08)
[2022-06-01] MEDS: Aspirin 81 mg Enteric Coated Tablet PO SCH (08:08)
[2022-06-01] MEDS: Magnesium Oxide 400 MG TAB PO SCH (08:08)
[2022-06-01] MEDS: HYDROcodone/Acetaminophen 5/325 mg Tablet PO PRN ×2 (08:51→22:10)
[2022-06-01] MEDS: Doxycycline 100 MG in Sodium Chloride 0.9% 100 ML IVPB SCH ×2 (08:52→22:18)
[2022-06-01] MEDS: Metoprolol Tartrate 25 MG TAB PO SCH (22:10)
[2022-06-02] MEDS: Aztreonam 1 GM in Sodium Chloride 0.9% 100 ML IVPB SCH ×3 (02:15→17:28)
[2022-06-02] MEDS: Ondansetron PF 4 MG/2 ML Vial IVP PRN (03:28)
[2022-06-02 04:14] LABS: #Lymphocytes 1.7 thou/uL (1.20-3.40); #Monocytes 1.5 thou/uL (0.11-0.59); #Neutrophils 16.7 thou/uL (1.40-6.50); %Basophils 0.1 % (0.0-1.0); %Eosinophils 0.1 % (0.0-10.0); %Lymphocytes 8.7 % (21.0-51.0); %Monocytes 7.3 % (0.0-10.0); %Neutrophils 83.9 % (42.0-75.0); Hemoglobin 15.5 g/dL (14.0-18.0); Mean Corpuscular HGB CONC 30.7 g/dL (32.0-36.0); Mean Corpuscular Hemoglobin 29.9 pg (27.0-31.0); Mean Corpuscular Volume 97.3 fl (78.0-98.0); Mean Platelet Volume 8.4 fL (7.4-10.4); Platelet Count 249 10x3/uL (130-400); RBC Distribution Width 12.7 % (11.5-14.5); Red Blood Cell (RBC) Count 5.19 mill/uL (4.70-6.10); White Blood Cell (WBC) Count 19.9 10x3/uL (4.8-10.8)
[2022-06-02] MEDS: Amiodarone 450 MG, Admixture Fee 1 EACH in Dextrose 5% in Water 250 ML IVPB SCH (04:17)
[2022-06-02 04:24] LABS: ALT (SGPT) 41 U/L (8-55); AST (SGOT) 77 U/L (5-34); Albumin 3.5 g/dL (3.4-4.8); Alkaline Phosphatase 57 U/L (40-110); Anion Gap 15 mmol/L (10-20); BUN (Urea Nitrogen) 27 mg/dL (8.4-25.7); Bilirubin, Total 0.7 mg/dL (0.2-1.2); Calc. Creatinine Clearance 80 mL/min (70-130); Calcium 8.4 mg/dL (7.8-10.44); Carbon Dioxide 18 mmol/L (23-31); Cardiac Risk 2.3 (Less than 4.5); Chloride 103 mmol/L (98-107); Cholesterol 133 mg/dl (< 200 Desired); Estimated GFR 86; Globulin 3.4 g/dL (2.4-3.5); Glucose 125 mg/dL (83-110); HDL Cholesterol 59 mg/dL (>60 Neg Risk); LDL Cholesterol, Calculated 56 mg/dL; Magnesium 2.3 mg/dL (1.6-2.6); Potassium 5.5 mmol/L (3.5-5.1); Protein, Total 6.9 g/dL (5.8-8.1); Sodium 130 mmol/L (136-145); Triglycerides 89 mg/dL (Less than 150)
[2022-06-02] MEDS: Levothyroxine Sodium 100 MCG TAB PO SCH (05:32)
[2022-06-02] MEDS: Aspirin 81 mg Enteric Coated Tablet PO SCH (08:20)
[2022-06-02] MEDS: predniSONE 20 MG TAB PO SCH (08:20)
[2022-06-02] MEDS: Metoprolol Tartrate 25 MG TAB PO SCH ×2 (08:20→20:57)
[2022-06-02] MEDS: Magnesium Oxide 400 MG TAB PO SCH (08:20)
[2022-06-02] MEDS: Morphine 2 MG/ML VIAL SLOW IVP PRN (08:29)
[2022-06-02] MEDS: Doxycycline 100 MG in Sodium Chloride 0.9% 100 ML IVPB SCH (09:35)
[2022-06-02] MEDS: Ipratropium Bromide 2.5 ml Neb NEB SCH ×3 (14:22→23:00)
[2022-06-02] MEDS: HYDROcodone/Acetaminophen 5/325 mg Tablet PO PRN (15:14)
[2022-06-02 17:30] LABS: Anion Gap 13 mmol/L (10-20); BUN (Urea Nitrogen) 27 mg/dL (8.4-25.7); Calc. Creatinine Clearance 83 mL/min (70-130); Calcium 8.4 mg/dL (7.8-10.44); Carbon Dioxide 21 mmol/L (23-31); Chloride 103 mmol/L (98-107); Estimated GFR 87; Glucose 119 mg/dL (83-110); Potassium 4.7 mmol/L (3.5-5.1); Sodium 132 mmol/L (136-145)
[2022-06-02] MEDS: Amiodarone 200 MG TAB PO SCH (20:57)
[2022-06-03] MEDS: Doxycycline 100 MG in Sodium Chloride 0.9% 100 ML IVPB SCH ×2 (00:16→09:27)
[2022-06-03] MEDS: Ipratropium Bromide 2.5 ml Neb NEB SCH ×6 (03:37→22:45)
[2022-06-03] MEDS: Aztreonam 1 GM in Sodium Chloride 0.9% 100 ML IVPB SCH ×2 (03:50→09:27)
[2022-06-03] MEDS: Levothyroxine Sodium 100 MCG TAB PO SCH (04:49)
[2022-06-03 05:09] LABS: Actual Bicarbonate (HCO3v) 21 mEq/L (22-28); Base Excess -1.4 mEq/L (-2.0 to +3.0); Calcium, Ionized (venous) 0.91 mmol/L (1.16-1.32); Chloride (VBG) 102 mmol/L (98-106); Hemoglobin (Hb) 16.2 g/dL (12.6-17.4); Potassium (VBG) 4.82 mmol/L (3.70-5.30); Sodium 131.3 mmol/L (133-146); pH (venous) 7.46 (7.32-7.43)
[2022-06-03 05:13] LABS: #Lymphocytes 2.2 thou/uL (1.20-3.40); #Monocytes 1.6 thou/uL (0.11-0.59); #Neutrophils 13.6 thou/uL (1.40-6.50); %Basophils 0.1 % (0.0-1.0); %Eosinophils 0.3 % (0.0-10.0); %Lymphocytes 12.4 % (21.0-51.0); %Monocytes 9.3 % (0.0-10.0); %Neutrophils 77.9 % (42.0-75.0); Hemoglobin 15.1 g/dL (14.0-18.0); Mean Corpuscular HGB CONC 33.3 g/dL (32.0-36.0); Mean Corpuscular Hemoglobin 31.4 pg (27.0-31.0); Mean Corpuscular Volume 94.3 fl (78.0-98.0); Mean Platelet Volume 7.9 fL (7.4-10.4); Platelet Count 251 10x3/uL (130-400); RBC Distribution Width 12.6 % (11.5-14.5); Red Blood Cell (RBC) Count 4.81 mill/uL (4.70-6.10); White Blood Cell (WBC) Count 17.5 10x3/uL (4.8-10.8)
[2022-06-03 05:31] LABS: ALT (SGPT) 38 U/L (8-55); AST (SGOT) 47 U/L (5-34); Albumin 3.4 g/dL (3.4-4.8); Alkaline Phosphatase 48 U/L (40-110); Anion Gap 12 mmol/L (10-20); BUN (Urea Nitrogen) 27 mg/dL (8.4-25.7); Bilirubin, Total 0.7 mg/dL (0.2-1.2); Calc. Creatinine Clearance 79 mL/min (70-130); Calcium 8.5 mg/dL (7.8-10.44); Carbon Dioxide 22 mmol/L (23-31); Chloride 104 mmol/L (98-107); Estimated GFR 84; Globulin 2.9 g/dL (2.4-3.5); Glucose 120 mg/dL (83-110); Magnesium 2.3 mg/dL (1.6-2.6); Potassium 5.1 mmol/L (3.5-5.1); Protein, Total 6.3 g/dL (5.8-8.1); Sodium 133 mmol/L (136-145)
[2022-06-03] MEDS: predniSONE 20 MG TAB PO SCH (09:29)
[2022-06-03] MEDS: Metoprolol Tartrate 25 MG TAB PO SCH ×2 (09:29→20:30)
[2022-06-03] MEDS: Magnesium Oxide 400 MG TAB PO SCH (09:29)
[2022-06-03] MEDS: Amiodarone 200 MG TAB PO SCH ×2 (09:29→20:30)
[2022-06-03] MEDS: Aspirin 81 mg Enteric Coated Tablet PO SCH (09:30)
[2022-06-03] MEDS: Clindamycin 150 MG CAP PO SCH (20:31)
[2022-06-03] MEDS: guaiFENesin ER 600 MG TAB PO SCH (20:31)
[2022-06-03] MEDS ORDERED: Cefuroxime 250 MG TAB PO SCH (21:00)
[2022-06-04] MEDS: Ipratropium Bromide 2.5 ml Neb NEB SCH ×6 (02:12→23:23)
[2022-06-04 04:23] LABS: ALT (SGPT) 40 U/L (8-55); AST (SGOT) 50 U/L (5-34); Albumin 3.1 g/dL (3.4-4.8); Alkaline Phosphatase 47 U/L (40-110); Anion Gap 12 mmol/L (10-20); BUN (Urea Nitrogen) 24 mg/dL (8.4-25.7); Bilirubin, Total 0.6 mg/dL (0.2-1.2); Calc. Creatinine Clearance 85 mL/min (70-130); Calcium 8.3 mg/dL (7.8-10.44); Carbon Dioxide 23 mmol/L (23-31); Chloride 104 mmol/L (98-107); Estimated GFR 86; Globulin 2.6 g/dL (2.4-3.5); Glucose 113 mg/dL (83-110); Magnesium 2.2 mg/dL (1.6-2.6); Potassium 5.1 mmol/L (3.5-5.1); Protein, Total 5.7 g/dL (5.8-8.1); Sodium 134 mmol/L (136-145)
[2022-06-04 04:54] LABS: Band 2 % (5-11); Hemoglobin 14.7 g/dL (14.0-18.0); Lymphocytes 13 % (21-51); MDiff Complete? YES; Mean Corpuscular HGB CONC 33.4 g/dL (32.0-36.0); Mean Corpuscular Hemoglobin 31.4 pg (27.0-31.0); Mean Corpuscular Volume 94.1 fl (78.0-98.0); Mean Platelet Volume 7.8 fL (7.4-10.4); Monocytes 7 % (0-10); Neutrophil 77 % (42-75); Platelet Count 239 10x3/uL (130-400); Platelet Morphology Comment Appears Adequate; RBC Distribution Width 12.6 % (11.5-14.5); RBC Morphology Normal; Reactive Lymphocytes 1 % (0-10); Red Blood Cell (RBC) Count 4.67 mill/uL (4.70-6.10); White Blood Cell (WBC) Count 13.6 10x3/uL (4.8-10.8)
[2022-06-04] MEDS: Levothyroxine Sodium 100 MCG TAB PO SCH (06:04)
[2022-06-04] MEDS: Polyethylene Glycol 3350 17 GM Packet PO SCH (08:44)
[2022-06-04] MEDS: predniSONE 20 MG TAB PO SCH (08:44)
[2022-06-04] MEDS: Aspirin 81 mg Enteric Coated Tablet PO SCH (08:44)
[2022-06-04] MEDS: Clindamycin 150 MG CAP PO SCH ×3 (08:44→20:23)
[2022-06-04] MEDS: Metoprolol Tartrate 25 MG TAB PO SCH ×2 (08:44→20:23)
[2022-06-04] MEDS: Magnesium Oxide 400 MG TAB PO SCH (08:45)
[2022-06-04] MEDS: guaiFENesin ER 600 MG TAB PO SCH ×3 (08:45→20:25)
[2022-06-04] MEDS: Amiodarone 200 MG TAB PO SCH ×2 (08:45→20:22)
[2022-06-04] MEDS ORDERED: Bisacodyl 10 MG SUPP PR PRN (20:12)
[2022-06-04] MEDS ORDERED: Polyethylene Glycol 3350 17 GM Packet PO SCH (20:15)
[2022-06-04] MEDS: GUAIFENESIN SF SOLN 200 MG/10 ML UDCUP PO PRN (21:52)
[2022-06-05] MEDS: Ipratropium Bromide 2.5 ml Neb NEB SCH ×4 (02:03→14:50)
[2022-06-05 04:21] LABS: Hemoglobin 14.2 g/dL (14.0-18.0); Mean Corpuscular HGB CONC 32.2 g/dL (32.0-36.0); Mean Corpuscular Hemoglobin 30.4 pg (27.0-31.0); Mean Corpuscular Volume 94.3 fl (78.0-98.0); Mean Platelet Volume 7.8 fL (7.4-10.4); Platelet Count 280 10x3/uL (130-400); RBC Distribution Width 12.8 % (11.5-14.5); Red Blood Cell (RBC) Count 4.69 mill/uL (4.70-6.10); White Blood Cell (WBC) Count 15.3 10x3/uL (4.8-10.8)
[2022-06-05] MEDS: GUAIFENESIN SF SOLN 200 MG/10 ML UDCUP PO PRN ×2 (04:30→21:50)
[2022-06-05 04:35] LABS: ALT (SGPT) 58 U/L (8-55); AST (SGOT) 57 U/L (5-34); Albumin 3.2 g/dL (3.4-4.8); Alkaline Phosphatase 47 U/L (40-110); Anion Gap 11 mmol/L (10-20); BUN (Urea Nitrogen) 20 mg/dL (8.4-25.7); Bilirubin, Total 0.5 mg/dL (0.2-1.2); Calc. Creatinine Clearance 89 mL/min (70-130); Calcium 8.7 mg/dL (7.8-10.44); Carbon Dioxide 26 mmol/L (23-31); Chloride 102 mmol/L (98-107); Estimated GFR 88; Globulin 2.5 g/dL (2.4-3.5); Glucose 118 mg/dL (83-110); Magnesium 2.1 mg/dL (1.6-2.6); Potassium 4.5 mmol/L (3.5-5.1); Protein, Total 5.7 g/dL (5.8-8.1); Sodium 134 mmol/L (136-145)
[2022-06-05 05:14] LABS: Band 4 % (5-11); Lymphocytes 21 % (21-51); MDiff Complete? YES; Metamyelocyte 1 % (0-0); Monocytes 7 % (0-10); Neutrophil 67 % (42-75); Platelet Morphology Comment Appears Adequate; Polychromasia SLIGHT = 2-3 cells (100X) (0-2/hpf)
[2022-06-05] MEDS: Levothyroxine Sodium 100 MCG TAB PO SCH (05:34)
[2022-06-05] MEDS: guaiFENesin ER 600 MG TAB PO SCH (09:06)
[2022-06-05] MEDS: Clindamycin 150 MG CAP PO SCH ×3 (09:06→21:50)
[2022-06-05] MEDS: Amiodarone 200 MG TAB PO SCH (09:07)
[2022-06-05] MEDS: predniSONE 20 MG TAB PO SCH (09:09)
[2022-06-05] MEDS: Metoprolol Tartrate 25 MG TAB PO SCH ×2 (09:10→21:50)
[2022-06-05] MEDS: Aspirin 81 mg Enteric Coated Tablet PO SCH (09:10)
[2022-06-05] MEDS: Magnesium Oxide 400 MG TAB PO SCH (09:10)
[2022-06-05] MEDS: Polyethylene Glycol 3350 17 GM Packet PO SCH (09:24)
[2022-06-05] MEDS: Furosemide 20 MG/2 ML VIAL SLOW IVP SCH (14:38)
[2022-06-05] MEDS: Ipratropium/Albuterol 3 ML NEB NEB SCH ×2 (18:43→22:22)
[2022-06-06] MEDS: Ipratropium/Albuterol 3 ML NEB NEB SCH ×2 (01:31→07:13)
[2022-06-06 05:07] LABS: Mean Corpuscular HGB CONC 33.5 g/dL (32.0-36.0); Mean Corpuscular Hemoglobin 31.3 pg (27.0-31.0); Mean Corpuscular Volume 93.5 fl (78.0-98.0); Mean Platelet Volume 7.8 fL (7.4-10.4); Platelet Count 278 10x3/uL (130-400); Red Blood Cell (RBC) Count 4.48 mill/uL (4.70-6.10); White Blood Cell (WBC) Count 14.2 10x3/uL (4.8-10.8)
[2022-06-06 05:34] LABS: ALT (SGPT) 56 U/L (8-55); AST (SGOT) 47 U/L (5-34); Albumin 3.1 g/dL (3.4-4.8); Alkaline Phosphatase 45 U/L (40-110); Anion Gap 13 mmol/L (10-20); BUN (Urea Nitrogen) 20 mg/dL (8.4-25.7); Bilirubin, Total 0.5 mg/dL (0.2-1.2); Calc. Creatinine Clearance 79 mL/min (70-130); Calcium 8.8 mg/dL (7.8-10.44); Carbon Dioxide 25 mmol/L (23-31); Chloride 102 mmol/L (98-107); Estimated GFR 85; Globulin 2.5 g/dL (2.4-3.5); Glucose 110 mg/dL (83-110); Potassium 4.5 mmol/L (3.5-5.1); Protein, Total 5.6 g/dL (5.8-8.1); Sodium 135 mmol/L (136-145)
[2022-06-06 05:46] LABS: Band 2 % (5-11); Lymphocytes 30 % (21-51); MDiff Complete? YES; Monocytes 4 % (0-10); Myelocyte 2 % (0-0); Neutrophil 62 % (42-75)
[2022-06-06] MEDS: Levothyroxine Sodium 100 MCG TAB PO SCH (06:20)
[2022-06-06] MEDS: Furosemide 20 MG/2 ML VIAL SLOW IVP SCH ×2 (06:20→14:08)
[2022-06-06] MEDS: Aspirin 81 mg Enteric Coated Tablet PO SCH (09:10)
[2022-06-06] MEDS: Metoprolol Tartrate 25 MG TAB PO SCH ×2 (09:10→20:43)
[2022-06-06] MEDS: predniSONE 20 MG TAB PO SCH (09:10)
[2022-06-06] MEDS: Clindamycin 150 MG CAP PO SCH ×3 (09:11→20:44)
[2022-06-06] MEDS: Amiodarone 200 MG TAB PO SCH (09:11)
[2022-06-06] MEDS: Magnesium Oxide 400 MG TAB PO SCH (09:12)
[2022-06-06] MEDS: Polyethylene Glycol 3350 17 GM Packet PO SCH (09:14)
[2022-06-06] MEDS: Ipratropium 200 Puff Oral Inhaler INH SCH ×4 (09:48→23:29)
[2022-06-06] MEDS: Albuterol 200 PUFF (6.7GM INHALER) INH SCH ×4 (09:48→23:29)
[2022-06-07] MEDS: Albuterol 200 PUFF (6.7GM INHALER) INH SCH ×6 (01:38→22:25)
[2022-06-07] MEDS: Ipratropium 200 Puff Oral Inhaler INH SCH ×6 (01:38→22:26)
[2022-06-07 04:27] LABS: #Eosinphils 0.2 thou/uL (0.0-0.7); #Lymphocytes 2.9 thou/uL (1.20-3.40); #Monocytes 1.1 thou/uL (0.11-0.59); #Neutrophils 8.9 thou/uL (1.40-6.50); %Basophils 0.2 % (0.0-1.0); %Eosinophils 1.6 % (0.0-10.0); %Lymphocytes 21.8 % (21.0-51.0); %Monocytes 8.7 % (0.0-10.0); %Neutrophils 67.7 % (42.0-75.0); Mean Corpuscular HGB CONC 33.7 g/dL (32.0-36.0); Mean Corpuscular Hemoglobin 31.3 pg (27.0-31.0); Mean Corpuscular Volume 92.9 fl (78.0-98.0); Mean Platelet Volume 7.5 fL (7.4-10.4); Platelet Count 291 10x3/uL (130-400); RBC Distribution Width 12.7 % (11.5-14.5); Red Blood Cell (RBC) Count 4.46 mill/uL (4.70-6.10); White Blood Cell (WBC) Count 13.1 10x3/uL (4.8-10.8)
[2022-06-07 04:43] LABS: ALT (SGPT) 53 U/L (8-55); AST (SGOT) 38 U/L (5-34); Alkaline Phosphatase 41 U/L (40-110); Anion Gap 11 mmol/L (10-20); BUN (Urea Nitrogen) 23 mg/dL (8.4-25.7); Bilirubin, Total 0.4 mg/dL (0.2-1.2); Calc. Creatinine Clearance 69 mL/min (70-130); Calcium 8.9 mg/dL (7.8-10.44); Carbon Dioxide 26 mmol/L (23-31); Chloride 101 mmol/L (98-107); Estimated GFR 81; Globulin 2.4 g/dL (2.4-3.5); Glucose 112 mg/dL (83-110); Potassium 4.3 mmol/L (3.5-5.1); Protein, Total 5.4 g/dL (5.8-8.1); Sodium 134 mmol/L (136-145)
[2022-06-07] MEDS: Furosemide 20 MG/2 ML VIAL SLOW IVP SCH ×2 (06:19→14:08)
[2022-06-07] MEDS: Levothyroxine Sodium 100 MCG TAB PO SCH (06:19)
[2022-06-07] MEDS ORDERED: Magnesium 2 GM/50 ML(in water) 2 GM in Premix Bag 1 BAG IVPB SCH (08:00)
[2022-06-07] MEDS: Amiodarone 200 MG TAB PO SCH (08:31)
[2022-06-07] MEDS: predniSONE 20 MG TAB PO SCH (08:32)
[2022-06-07] MEDS: Aspirin 81 mg Enteric Coated Tablet PO SCH (08:32)
[2022-06-07] MEDS: Magnesium Oxide 400 MG TAB PO SCH (08:32)
[2022-06-07] MEDS: Clindamycin 150 MG CAP PO SCH ×3 (08:32→21:09)
[2022-06-07] MEDS: Metoprolol Tartrate 25 MG TAB PO SCH ×2 (08:32→21:09)
[2022-06-07] MEDS: Polyethylene Glycol 3350 17 GM Packet PO SCH (08:33)
[2022-06-07] MEDS: Mupirocin 2% Ointment 22 GM Tube TOP PRN ×2 (08:33→21:18)
[2022-06-07] MEDS: GUAIFENESIN SF SOLN 200 MG/10 ML UDCUP PO PRN ×2 (16:33→21:16)
[2022-06-08] MEDS: Albuterol 200 PUFF (6.7GM INHALER) INH SCH ×6 (02:09→23:41)
[2022-06-08] MEDS: Ipratropium 200 Puff Oral Inhaler INH SCH ×6 (02:09→23:41)
[2022-06-08 04:56] LABS: #Basophils 0.1 thou/uL (0.0-0.2); #Eosinphils 0.3 thou/uL (0.0-0.7); #Lymphocytes 2.5 thou/uL (1.20-3.40); #Neutrophils 8.5 thou/uL (1.40-6.50); %Basophils 0.4 % (0.0-1.0); %Eosinophils 2.7 % (0.0-10.0); %Lymphocytes 20.5 % (21.0-51.0); %Monocytes 7.8 % (0.0-10.0); %Neutrophils 68.6 % (42.0-75.0); Mean Corpuscular HGB CONC 32.5 g/dL (32.0-36.0); Mean Corpuscular Hemoglobin 30.3 pg (27.0-31.0); Mean Corpuscular Volume 93.2 fl (78.0-98.0); Mean Platelet Volume 7.2 fL (7.4-10.4); Platelet Count 330 10x3/uL (130-400); RBC Distribution Width 12.7 % (11.5-14.5); Red Blood Cell (RBC) Count 4.62 mill/uL (4.70-6.10); White Blood Cell (WBC) Count 12.4 10x3/uL (4.8-10.8)
[2022-06-08 05:13] LABS: ALT (SGPT) 56 U/L (8-55); AST (SGOT) 37 U/L (5-34); Albumin 3.2 g/dL (3.4-4.8); Alkaline Phosphatase 41 U/L (40-110); Anion Gap 10 mmol/L (10-20); BUN (Urea Nitrogen) 25 mg/dL (8.4-25.7); Bilirubin, Total 0.5 mg/dL (0.2-1.2); Calc. Creatinine Clearance 69 mL/min (70-130); Calcium 9.1 mg/dL (7.8-10.44); Carbon Dioxide 29 mmol/L (23-31); Chloride 100 mmol/L (98-107); Estimated GFR 80; Globulin 2.4 g/dL (2.4-3.5); Glucose 116 mg/dL (83-110); Potassium 4.1 mmol/L (3.5-5.1); Protein, Total 5.6 g/dL (5.8-8.1); Sodium 135 mmol/L (136-145)
[2022-06-08] MEDS: Furosemide 20 MG/2 ML VIAL SLOW IVP SCH ×2 (05:38→14:02)
[2022-06-08] MEDS: Levothyroxine Sodium 100 MCG TAB PO SCH (05:38)
[2022-06-08] MEDS ORDERED: Temazepam 15 MG CAP PO PRN (08:46)
[2022-06-08] MEDS: Amiodarone 200 MG TAB PO SCH (09:04)
[2022-06-08] MEDS: Polyethylene Glycol 3350 17 GM Packet PO SCH (09:04)
[2022-06-08] MEDS: Metoprolol Tartrate 25 MG TAB PO SCH ×2 (09:04→20:45)
[2022-06-08] MEDS: predniSONE 20 MG TAB PO SCH (09:05)
[2022-06-08] MEDS: Clindamycin 150 MG CAP PO SCH ×3 (09:05→20:45)
[2022-06-08] MEDS: Magnesium Oxide 400 MG TAB PO SCH (09:05)
[2022-06-08] MEDS: GUAIFENESIN SF SOLN 200 MG/10 ML UDCUP PO PRN ×2 (09:05→20:44)
[2022-06-08] MEDS: Aspirin 81 mg Enteric Coated Tablet PO SCH (09:05)
[2022-06-08] MEDS ORDERED: Communication Order-Pharmacy FS SCH (09:45)
[2022-06-08] MEDS: Mupirocin 2% Ointment 22 GM Tube TOP PRN (09:52)
[2022-06-08] MEDS: Melatonin 3 MG TAB PO SCH (20:45)
[2022-06-08] MEDS: Ondansetron PF 4 MG/2 ML Vial IVP PRN (20:53)
[2022-06-09] MEDS: Ipratropium 200 Puff Oral Inhaler INH SCH ×6 (02:30→23:40)
[2022-06-09] MEDS: Albuterol 200 PUFF (6.7GM INHALER) INH SCH ×6 (03:17→23:40)
[2022-06-09] MEDS: Amiodarone 200 MG TAB PO SCH (05:17)
[2022-06-09] MEDS: Magnesium Oxide 400 MG TAB PO SCH (05:18)
[2022-06-09] MEDS: Clindamycin 150 MG CAP PO SCH ×3 (05:18→21:05)
[2022-06-09] MEDS: predniSONE 20 MG TAB PO SCH (05:18)
[2022-06-09] MEDS: Levothyroxine Sodium 100 MCG TAB PO SCH (05:18)
[2022-06-09] MEDS: Metoprolol Tartrate 25 MG TAB PO SCH ×2 (05:18→21:05)
[2022-06-09] MEDS: GUAIFENESIN SF SOLN 200 MG/10 ML UDCUP PO PRN (05:19)
[2022-06-09] MEDS: Aspirin 81 mg Enteric Coated Tablet PO SCH (05:19)
[2022-06-09] MEDS: Furosemide 20 MG/2 ML VIAL SLOW IVP SCH ×2 (05:19→15:49)
[2022-06-09] MEDS ORDERED: Adenosine 6 MG/2 ML VIAL ONE (07:03)
[2022-06-09] MEDS ORDERED: Nitroglycerin 50 MG/250 ML BOT 250 ML ONE (07:03)
[2022-06-09] MEDS ORDERED: Heparin 10,000 UNITS/ 10 ML VIAL ONE ×2 (07:03→10:00)
[2022-06-09] MEDS ORDERED: Lidocaine 1% (PF) 30 ML VIAL ONE (07:04)
[2022-06-09 08:21] LABS: #Eosinphils 0.2 thou/uL (0.0-0.7); #Lymphocytes 2.6 thou/uL (1.20-3.40); #Neutrophils 11.8 thou/uL (1.40-6.50); %Basophils 0.2 % (0.0-1.0); %Eosinophils 1.1 % (0.0-10.0); %Lymphocytes 16.9 % (21.0-51.0); %Monocytes 6.3 % (0.0-10.0); %Neutrophils 75.5 % (42.0-75.0); Hemoglobin 15.6 g/dL (14.0-18.0); Mean Corpuscular HGB CONC 31.8 g/dL (32.0-36.0); Mean Corpuscular Hemoglobin 29.8 pg (27.0-31.0); Mean Corpuscular Volume 93.7 fl (78.0-98.0); Mean Platelet Volume 7.4 fL (7.4-10.4); Platelet Count 373 10x3/uL (130-400); RBC Distribution Width 12.9 % (11.5-14.5); Red Blood Cell (RBC) Count 5.24 mill/uL (4.70-6.10); White Blood Cell (WBC) Count 15.6 10x3/uL (4.8-10.8)
[2022-06-09 08:35] LABS: Albumin 3.5 g/dL (3.4-4.8)
[2022-06-09 08:36] LABS: Chloride 97 mmol/L (98-107); Potassium 4.1 mmol/L (3.5-5.1); Sodium 136 mmol/L (136-145)
[2022-06-09 08:37] LABS: Calcium 9.4 mg/dL (7.8-10.44)
[2022-06-09 08:38] LABS: Globulin 2.7 g/dL (2.4-3.5); Glucose 126 mg/dL (83-110); Protein, Total 6.2 g/dL (5.8-8.1)
[2022-06-09] MEDS ORDERED: Iopamidol 370 76% 100 ML VIAL ONE (08:38)
[2022-06-09 08:39] LABS: Anion Gap 11 mmol/L (10-20); Bilirubin, Total 0.7 mg/dL (0.2-1.2); Carbon Dioxide 32 mmol/L (23-31)
[2022-06-09 08:40] LABS: Alkaline Phosphatase 46 U/L (40-110)
[2022-06-09 08:41] LABS: Calc. Creatinine Clearance 54 mL/min (70-130); Estimated GFR 63
[2022-06-09] MEDS ORDERED: fentaNYL 50 mcg/mL 1 mL Vial ONE (08:41)
[2022-06-09] MEDS ORDERED: Midazolam HCl 2 mg/2 ml Vial ONE (08:41)
[2022-06-09 08:42] LABS: BUN (Urea Nitrogen) 30 mg/dL (8.4-25.7)
[2022-06-09 08:43] LABS: ALT (SGPT) 55 U/L (8-55); AST (SGOT) 36 U/L (5-34)
[2022-06-09] MEDS ORDERED: Clopidogrel Bisulfate 300 MG TAB ONE (09:56)
[2022-06-09] MEDS: Polyethylene Glycol 3350 17 GM Packet PO SCH (10:50)
[2022-06-09] MEDS: Sodium Chloride 0.9% 1,000 ML IV SCH (15:49)
[2022-06-09] MEDS: Melatonin 3 MG TAB PO SCH (21:05)
[2022-06-10] MEDS: Ipratropium 200 Puff Oral Inhaler INH SCH ×4 (02:26→16:02)
[2022-06-10] MEDS: Albuterol 200 PUFF (6.7GM INHALER) INH SCH ×3 (02:26→16:01)
[2022-06-10 05:07] LABS: #Eosinphils 0.1 thou/uL (0.0-0.7); #Lymphocytes 2.5 thou/uL (1.20-3.40); #Monocytes 1.1 thou/uL (0.11-0.59); #Neutrophils 10.2 thou/uL (1.40-6.50); %Basophils 0.1 % (0.0-1.0); %Eosinophils 0.8 % (0.0-10.0); %Lymphocytes 17.7 % (21.0-51.0); %Monocytes 7.9 % (0.0-10.0); %Neutrophils 73.5 % (42.0-75.0); Hemoglobin 15.1 g/dL (14.0-18.0); Mean Corpuscular HGB CONC 32.2 g/dL (32.0-36.0); Mean Corpuscular Hemoglobin 30.4 pg (27.0-31.0); Mean Corpuscular Volume 94.4 fl (78.0-98.0); Mean Platelet Volume 7.6 fL (7.4-10.4); Platelet Count 296 10x3/uL (130-400); RBC Distribution Width 12.8 % (11.5-14.5); Red Blood Cell (RBC) Count 4.95 mill/uL (4.70-6.10); White Blood Cell (WBC) Count 13.9 10x3/uL (4.8-10.8)
[2022-06-10] MEDS: Sodium Chloride 0.9% 1,000 ML IV SCH (05:08)
[2022-06-10] MEDS: Levothyroxine Sodium 100 MCG TAB PO SCH (05:28)
[2022-06-10] MEDS: Furosemide 20 MG/2 ML VIAL SLOW IVP SCH ×2 (05:28→16:01)
[2022-06-10 05:35] LABS: ALT (SGPT) 50 U/L (8-55); AST (SGOT) 44 U/L (5-34); Albumin 3.1 g/dL (3.4-4.8); Alkaline Phosphatase 40 U/L (40-110); Anion Gap 14 mmol/L (10-20); BUN (Urea Nitrogen) 31 mg/dL (8.4-25.7); Bilirubin, Total 0.5 mg/dL (0.2-1.2); Calc. Creatinine Clearance 60 mL/min (70-130); Calcium 8.7 mg/dL (7.8-10.44); Carbon Dioxide 26 mmol/L (23-31); Chloride 101 mmol/L (98-107); Estimated GFR 72; Globulin 2.8 g/dL (2.4-3.5); Glucose 104 mg/dL (83-110); Potassium 4.6 mmol/L (3.5-5.1); Protein, Total 5.9 g/dL (5.8-8.1); Sodium 136 mmol/L (136-145)
[2022-06-10] MEDS ORDERED: Clopidogrel Bisulfate 75 MG TAB PO SCH (09:00)
[2022-06-10] MEDS ORDERED: Aspirin Chewable 81 MG TAB PO SCH (09:00)
[2022-06-10] MEDS: Clindamycin 150 MG CAP PO SCH ×2 (10:12→16:02)
[2022-06-10] MEDS: Amiodarone 200 MG TAB PO SCH (10:14)
[2022-06-10] MEDS: Magnesium Oxide 400 MG TAB PO SCH (10:14)
[2022-06-10] MEDS: Metoprolol Tartrate 25 MG TAB PO SCH (10:14)
[2022-06-10] MEDS: predniSONE 20 MG TAB PO SCH (10:15)
[2022-06-10] MEDS: Polyethylene Glycol 3350 17 GM Packet PO SCH (10:16)
[2022-06-10 15:23] VITALS: BP 142/66; TEMP 97.8
== END 2022-06-10 16:05 | disposition home or self-care (01) | DRG 853 ==
LOC: ERS 13:27 → ERHOLD 17:04 → CCU 21:19 → 2NO 06-02 22:19
PROVIDERS: ADMIT Family Medicine; ATTEND Family Medicine
PROC: 3E03329 Introduction of Other Anti-infective into Peripheral Vein, Percutaneous Approach (ICD-10-PCS; 2022-05-29)
PROC: 4A133R1 Monitoring of Arterial Saturation, Peripheral, Percutaneous Approach (ICD-10-PCS; 2022-05-29)
PROC: 3E033XZ Introduction of Vasopressor into Peripheral Vein, Percutaneous Approach (ICD-10-PCS; 2022-05-29)
PROC: 027034Z Dilation of Coronary Artery, One Artery with Drug-eluting Intraluminal Device, Percutaneous Approach (ICD-10-PCS; principal; 2022-06-09)
PROC: B2111ZZ Fluoroscopy of Multiple Coronary Arteries using Low Osmolar Contrast (ICD-10-PCS; 2022-06-09)
PROC: 4A023N7 Measurement of Cardiac Sampling and Pressure, Left Heart, Percutaneous Approach (ICD-10-PCS; 2022-06-09)
PROC: B2151ZZ Fluoroscopy of Left Heart using Low Osmolar Contrast (ICD-10-PCS; 2022-06-09)
DX: A41.9 Sepsis, unspecified organism (principal); I21.4 Non-ST elevation (NSTEMI) myocardial infarction; J18.9 Pneumonia, unspecified organism; J96.01 Acute respiratory failure with hypoxia; J69.0 Pneumonitis due to inhalation of food and vomit; R65.21 Severe sepsis with septic shock; I50.33 Acute on chronic diastolic (congestive) heart failure; Z20.822 Contact with and (suspected) exposure to COVID-19; E78.5 Hyperlipidemia, unspecified; Z96.642 Presence of left artificial hip joint; E03.9 Hypothyroidism, unspecified; M06.9 Rheumatoid arthritis, unspecified; G89.29 Other chronic pain; I11.0 Hypertensive heart disease with heart failure; I25.708 Atherosclerosis of coronary artery bypass graft(s), unspecified, with other forms of angina pectoris; I35.0 Nonrheumatic aortic (valve) stenosis; I48.0 Paroxysmal atrial fibrillation; Z79.890 Hormone replacement therapy; I25.2 Old myocardial infarction; Z95.1 Presence of aortocoronary bypass graft; Z95.5 Presence of coronary angioplasty implant and graft; Z88.0 Allergy status to penicillin; Z88.1 Allergy status to other antibiotic agents; Z88.8 Allergy status to other drugs, medicaments and biological substances; Z79.82 Long term (current) use of aspirin; Z79.51 Long term (current) use of inhaled steroids; Z79.899 Other long term (current) drug therapy; Z90.49 Acquired absence of other specified parts of digestive tract
CPT/HCPCS: 36415; 71045; 74018; 74230; 80053; 80061; 80202; 81003; 82533; 82550; 82805; 83605; 83690; 83735; 83880; 84145; 84443; 84484; 85025; 85347; 87040; 87081; 87086; 87449; 87899; 92928; 92978; 93005; 93010; 93306; 93459; 93798; 94640; 96361; 96365; 96366; 96367; 96372; 96375; 99152; 99153; C1725; C1753; C1760; C1769; C1874; C1887; C1894; C9600; J0153; J0282; J0692; J1644; J1650; J1885; J1940; J2001; J2250; J2272; J2405; J3010; J3370; J3475; J3490; J7050; J7070; J7512; J7611; J7620

== ENCOUNTER 2023-09-15 10:46 | Outpatient (CLI) | payer MEDICARE | END 2023-09-15 10:47 | disposition home or self-care (01) | LOC: RAD 10:46 | PROVIDERS: ATTEND Internal Medicine Critical Care Medicine | DX: R06.00 Dyspnea, unspecified (principal); J98.4 Other disorders of lung | CPT/HCPCS: 71046 ==

== ENCOUNTER 2024-11-22 09:04 | Outpatient (CLI) | payer MEDICARE ==
[2024-11-22] MEDS ORDERED: E-Z-HD 98% W/W 340GM BOT (x-ray ONLY) ONE (09:42)
[2024-11-22] MEDS ORDERED: Barium Sulfate 96% 176 GM BOT (xray ONLY) ONE (09:42)
== END 2024-11-22 09:05 | disposition home or self-care (01) ==
LOC: RAD 09:04
PROVIDERS: ATTEND Physician Assistant Medical
DX: R13.10 Dysphagia, unspecified (principal); R10.13 Epigastric pain; K22.2 Esophageal obstruction; R19.2 Visible peristalsis; J98.6 Disorders of diaphragm
CPT/HCPCS: 74220

== ENCOUNTER 2025-01-16 06:30 | Day surgery (SDC) | payer MEDICARE ==
[2025-01-15 10:29] VITALS: BMI 23.6
[2025-01-16] MEDS ORDERED: PROPOFOL 200 MG/20 ML VIAL ONE (08:35)
== END 2025-01-16 09:46 | disposition home or self-care (01) ==
LOC: SDC 06:30
PROVIDERS: ATTEND Internal Medicine Gastroenterology
PROC: 0D738ZZ Dilation of Lower Esophagus, Via Natural or Artificial Opening Endoscopic (ICD-10-PCS; principal; 2025-01-16)
DX: K22.2 Esophageal obstruction (principal); I25.10 Atherosclerotic heart disease of native coronary artery without angina pectoris; E78.00 Pure hypercholesterolemia, unspecified; Z96.642 Presence of left artificial hip joint; Z98.49 Cataract extraction status, unspecified eye; Z90.49 Acquired absence of other specified parts of digestive tract; Z88.1 Allergy status to other antibiotic agents; Z88.0 Allergy status to penicillin; Z88.8 Allergy status to other drugs, medicaments and biological substances; Z91.018 Allergy to other foods; Z79.82 Long term (current) use of aspirin; Z79.899 Other long term (current) drug therapy
CPT/HCPCS: J2704